=== PATIENT | female | born 1940 | race Caucasian/White ===

== ENCOUNTER 2017-07-17 10:39 | Observation (INO) | payer MEDICARE, OTHER ==
[~2017-07-17] VITALS: Ht 160 cm; Wt 64.0 kg
[2017-07-17] VITALS (7 sets, daily range): BP systolic 150–201; BP diastolic 60–93; PULSE 60–73; RESP 16–18; TEMP 97.4–98.2; O2SAT 97–100
[~2017-07-17 10:39] MED LIST: ATOR80TA41 PO; CARV6.252 OR; KCL20 PO; LISI-363 PO; MULT1TAB PO; NITR.4 SL; PRAS10TA OR; REST0.05 OU; ST JTAB PO
[2017-07-17 11:19] LABS: BILIRUBIN, URINE NEG (NEG); BLOOD, URINE SMALL (NEG); GLUCOSE,URINE NEG (NEG); KETONE, URINE NEG (NEG); NITRITE,URINE NEG (NEG); URINE LEUKOCYTE ESTERASE NEG (NEG)
[2017-07-17 11:38] LABS: SQUAMOUS EPITHELIAL CELL URINE 0-5 /hpf (0-5); URINE COLOR YELLOW (YELLW/STRAW); WBC, URINE 0-2 /hpf (0-5)
[2017-07-17] MEDS ORDERED: CARV6.252 PO (12:44)
[2017-07-17] MEDS ORDERED: PLAV75TA29 PO (12:44)
[2017-07-17] MEDS ORDERED: POTA10TA2 PO (12:44)
[2017-07-17] MEDS ORDERED: LIPI40TA PO (12:44)
[2017-07-17] MEDS ORDERED: CENTCHW4 CHEW (12:44)
[2017-07-17] MEDS ORDERED: LISI-515 PO (12:44)
[2017-07-17] MEDS ORDERED: REST0.05 EACH EYE (12:44)
[2017-07-17] MEDS ORDERED: NITR1SUB3 SL (12:44)
[2017-07-17] MEDS ORDERED: ASPI-516 CHEW (12:44)
[2017-07-17] MEDS ORDERED: SODIUM CHLORIDE 0.9% FLUSH 10 ML FLUSH IVF PRN (13:15)
[2017-07-17] MEDS ORDERED: PANTOPRAZOLE SODIUM 40 MG VIAL IV PUSH ONE (13:15)
--- NOTE | 2017-07-17 13:23 | PD ---
HPI Chief Complaint: Abdominal Pain Time Seen by Provider: 12:36 Travel History International Travel<30 days: No Contact w/Intl Traveler<30days: No Traveled to known affect area: No History of Present Illness HPI 76-year-old female with history of CAD, cardiac stents, renal cancer and colon cancer status post resection of the right kidney and part of the colon, here for evaluation of right upper abdominal pain and indigestion. The patient has had intermittent right upper quadrant pain for the last month. Since around 2: 00 AM the pain has been more constant, moderate, worse with movement and palpation. She also noted some indigestion and has been burping. Indigestion sensation has resolved, however it reminded her of the feeling that she experienced when she had a STEMI in 2013. No chest pain. No fevers or chills. She did become nauseous and had several episodes of pinkish emesis this morning. No diarrhea. PFSH Past Medical History Arthritis: Yes Cancer: Yes (COLON, KIDNEY) Cardiovascular Problems: Yes (AR, CARDIAC STENTS) High Cholesterol: Yes Chemotherapy: Yes (RESOLVED) Diminished Hearing: No Endocrine: No Gastrointestinal Disorders: No GERD: Yes Hiatal Hernia: Yes Hypertension: Yes Immune Disorder: No Medical other: Yes (MRSA) Musculoskeletal: Yes Neurologic: No Psychiatric: No Reproductive: No Respiratory: No Myocardial Infarction: Yes Radiation Therapy: No Tetanus Vaccination: > 5 Years Influenza Vaccination: Yes Past Surgical History Abdominal Surgery: Yes (hysterectomy, appendectomy) Appendectomy: Yes Cardiac Surgery: Yes (STENTS X 2) Ear Surgery: No Endocrine Surgery: No Eye Surgery: No Genitourinary Surgery: No Gynecologic Surgery: Yes (hysterectomy) Hysterectomy: Yes Oral Surgery: No Thoracic Surgery: No Other Surgery: Yes (2 colon cancers RESECTIONS, right kidney removed) Social History Alcohol Use: No Tobacco Use: No Substance Use: No Allergies-Medications (Allergen,Severity, Reaction): Coded Allergies: No Known Allergies (Unverified Adverse Reaction, Unknown, 07/17/17) Reported Meds & Prescriptions Reported Meds & Active Scripts Active Reported Nitroglycerin SL (Nitroglycerin) 0.4 Mg Subl 0.4 Mg SL DIRECTED PRN ONE TABLET UNDER THE TONGUE NEEDED FOR CHEST PAIN, MAY REPEAT EVERY FIVE MINUTES FOR A TOTAL OF 3 DOSES OR CALL 911 IF NO RELIEF Centrum (Multiple Vitamins W/ Minerals) 1 Chew 1 Tab CHEW DAILY Restasis Opth (Cyclosporine Opth) 0.05% Emul 1 Drop EACH EYE BID Lipitor (Atorvastatin Calcium) 40 Mg Tab 40 Mg PO HS Potassium Chloride ER (Potassium Chloride) 10 Meq Tab 10 Meq PO DAILY Aspirin 81 Mg Chew 81 Mg CHEW DAILY Lisinopril 20 Mg Tab 20 Mg PO DAILY Carvedilol 6.25 Mg Tab 6.25 Mg PO BID Plavix (Clopidogrel Bisulfate) 75 Mg Tab 75 Mg PO DAILY Review of Systems Except as stated in HPI: all other systems reviewed are Neg Physical Exam Narrative GENERAL: Well-developed, well-nourished, comfortable, no apparent distress. SKIN: Focused skin assessment warm/dry. HEAD: Atraumatic. Normocephalic. EYES: Pupils equal and round. No scleral icterus. No injection or drainage. ENT: No nasal bleeding or discharge. Mucous membranes pink and moist. NECK: Trachea midline. No JVD. CARDIOVASCULAR: Regular rate and rhythm. No murmur appreciated. RESPIRATORY: No accessory muscle use. Clear to auscultation. Breath sounds equal bilaterally. GASTROINTESTINAL: Abdomen soft, nondistended. Moderate right upper quadrant tenderness without peritoneal signs. Rest of abdomen is soft and nontender. Normal bowel sounds. MUSCULOSKELETAL: No obvious deformities. No clubbing. No cyanosis. No edema. NEUROLOGICAL: Awake and alert. No obvious cranial nerve deficits. Motor grossly within normal limits. Normal speech. PSYCHIATRIC: Appropriate mood and affect; insight and judgment normal. Data Data Last Documented VS Vital Signs Date Time Temp Pulse Resp B/P (MAP) Pulse Ox O2 Delivery O2 Flow Rate FiO2 07/17/17 16:08 62 16 172/73 (106) 100 Room Air 07/17/17 10:44 98.2 Orders Orders Electrocardiogram (07/17/17 ) Urinalysis - C+S If Indicated (07/17/17 11:02) Ckmb (Isoenzyme) Profile (07/17/17 13:02) Complete Blood Count With Diff (07/17/17 13:02) Comprehensive Metabolic Panel (07/17/17 13:02) Magnesium (Mg) (07/17/17 13:02) Prothrombin Time / Inr (Pt) (07/17/17 13:02) Act Partial Throm Time (Ptt) (07/17/17 13:02) Troponin I (07/17/17 13:02) Lipase (07/17/17 13:02) Chest, Single Ap (07/17/17 13:02) Ecg Monitoring (07/17/17 13:02) Iv Access Insert/Monitor (07/17/17 13:02) Oximetry (07/17/17 13:02) Sodium Chloride 0.9% Flush (Ns Flush) (07/17/17 13:15) Pantoprazole Inj (Protonix Inj) (07/17/17 13:15) Us Abdomen Gallbladder (07/17/17 ) Ct Thorax/ Chest W Iv Contrast (07/17/17 ) Ct Abd/Pel W Iv Contrast(Rout) (07/17/17 ) Iodixanol 320 Inj (Rad Ct) (Visipaque 32 (07/17/17 15:26) Ciprofloxacin 400 Mg Premix (Cipro 400 M (07/17/17 16:30) Metronidazole 500 Mg Inj (Flagyl 500 Mg (07/17/17 16:30) Labs Laboratory Tests Test 07/17/17 11:10 07/17/17 13:10 Urine Color YELLOW Urine Turbidity CLEAR Urine pH 5.0 Urine Specific [place] 1.025 Urine Protein NEG mg/dL Urine Glucose (UA) NEG mg/dL Urine Ketones NEG mg/dL Urine Occult Blood SMALL Urine Nitrite NEG Urine Bilirubin NEG Urine Leukocyte Esterase NEG Urine RBC 3-5 /hpf Urine WBC 0-2 /hpf Urine Squamous Epithelial Cells 0-5 /hpf Urine Bacteria NONE /hpf Microscopic Urinalysis Comment CULT NOT INDICATED White Blood Count 9.6 TH/MM3 Red Blood Count 4.03 MIL/MM3 Hemoglobin 12.4 GM/DL Hematocrit 36.0 % Mean Corpuscular Volume 89.3 FL Mean Corpuscular Hemoglobin 30.9 PG Mean Corpuscular Hemoglobin Concent 34.6 % Red Cell Distribution Width 12.3 % Platelet Count 246 TH/MM3 Mean Platelet Volume 8.5 FL Neutrophils (%) (Auto) 71.3 % Lymphocytes (%) (Auto) 25.3 % Monocytes (%) (Auto) 2.9 % Eosinophils (%) (Auto) 0.2 % Basophils (%) (Auto) 0.3 % Neutrophils # (Auto) 6.9 TH/MM3 Lymphocytes # (Auto) 2.4 TH/MM3 Monocytes # (Auto) 0.3 TH/MM3 Eosinophils # (Auto) 0.0 TH/MM3 Basophils # (Auto) 0.0 TH/MM3 CBC Comment DIFF FINAL Differential Comment Prothrombin Time 10.4 SEC Prothromb Time International Ratio 1.0 RATIO Activated Partial Thromboplast Time 24.3 SEC Blood Urea Nitrogen 26 MG/DL Creatinine 0.80 MG/DL Random Glucose 114 MG/DL Total Protein 7.6 GM/DL Albumin 3.8 GM/DL Calcium Level 9.3 MG/DL Magnesium Level 2.0 MG/DL Alkaline Phosphatase 60 U/L Aspartate Amino Transf (AST/SGOT) 21 U/L Alanine Aminotransferase (ALT/SGPT) 23 U/L Total Bilirubin 0.6 MG/DL Sodium Level 137 MEQ/L Potassium Level 4.6 MEQ/L Chloride Level 106 MEQ/L Carbon Dioxide Level 24.5 MEQ/L Anion Gap 7 MEQ/L Estimat Glomerular Filtration Rate 70 ML/MIN Total Creatine Kinase 99 U/L Troponin I LESS THAN 0.02 NG/ML Lipase 193 U/L MDM Medical Decision Making Medical Screen Exam Complete: Yes Emergency Medical Condition: Yes Medical Record Reviewed: Yes Interpretation(s) EKG: Sinus, rate 68, normal axis, normal intervals, no acute ischemic abnormality. Differential Diagnosis Gastritis, pancreatitis, hepatobiliary disease, peptic ulcer disease, colitis, AR/ACS Narrative Course Vital signs reviewed. CBC is unremarkable. CMP is unremarkable. Lipase is 193. Cardiac enzymes are negative. UA shows small occult blood, not suggestive of UTI. Chest x-ray: CONCLUSION: 1. 1 cm spiculated nodular density within the right lung base. CT of the thorax is needed to further evaluate. At this point a pulmonary mass cannot be excluded. 2. Cardiomegaly without pulmonary vascular engorgement. Right upper quadrant ultrasound: CONCLUSION: 1. Shadowing gallstones. 2. 3.6 cm right liver cyst. I discussed the case with the patient's band shover Dr. Matos regarding the patient's indigestion. States the patient can follow-up in his office for cardiac evaluation this week. Patient and the patient's significant other were made aware of all findings. She states her symptoms improved with Protonix. CTs will be performed to further evaluate the patient's lung nodule. She reports known history of liver cyst. CT thorax was performed to further evaluate the concerning nodule seen on the x- ray: CT thorax: CONCLUSION: Minimal medial right lung scarring or atelectasis. Otherwise negative CT thorax with contrast. CT abdomen pelvis: CONCLUSION: 1. Abnormal study demonstrating findings suspicious for acute cholecystitis including pericholecystic fluid, distention of the gallbladder, and multiple calcified gallstones. 2. No dilated intra-or extrahepatic biliary ducts. 3. Small bilateral fat containing inguinal hernias. The patient was made aware of all findings. She continues to have right upper quadrant abdominal pain and is extremely tender on exam. CT abdomen pelvis is consistent with acute cholecystitis. She'll be started on IV antibiotics and admitted to the medical service. According to a hospital memorandum published by our on-call general surgeons, they do not want to be contacted emergently for acute cholecystitis, therefore the patient will be admitted to the hospitalist service with a routine consult placed to them. Case discussed with hospitalist Dr. Gonzalez will admit the patient to her service. Diagnosis Primary Impression: Acute cholecystitis Admitting Information Admitting Physician Requests: Observation Dave Ruby MD Jul 17, 2017 13:23
[2017-07-17 13:25] LABS: AUTOMATED NEUTROPHIL # 6.9 TH/MM3 (1.8-7.7); BASOPHIL % 0.3 % (0.0-2.0); EOSINOPHIL % 0.2 % (0.0-4.0); HEMOGLOBIN 12.4 GM/DL (11.6-15.3); LYMPH % 25.3 % (9.0-44.0); LYMPHOCYTE # 2.4 TH/MM3 (1.0-4.8); MEAN CELL VOLUME 89.3 FL (80.0-100.0); MEAN CORPUSCULAR HEMOGLOBIN 30.9 PG (27.0-34.0); MEAN CORPUSCULAR HGB CONC 34.6 % (32.0-36.0); MEAN PLATELET VOLUME 8.5 FL (7.0-11.0); MONO % 2.9 % (0.0-8.0); MONOCYTE # 0.3 TH/MM3 (0-0.9); NEUT % 71.3 % (16.0-70.0); PLATELET COUNT 246 TH/MM3 (150-450); RED BLOOD COUNT 4.03 MIL/MM3 (4.00-5.30); RED CELL DISTRIBUTION WIDTH 12.3 % (11.6-17.2); WHITE BLOOD COUNT 9.6 TH/MM3 (4.0-11.0)
[2017-07-17 13:30] LABS: CHLORIDE 106 MEQ/L (98-107); SODIUM (NA) 137 MEQ/L (136-145)
[2017-07-17 13:33] LABS: CALCIUM 9.3 MG/DL (8.5-10.1)
[2017-07-17 13:34] LABS: ALBUMIN 3.8 GM/DL (3.4-5.0); BICARBONATE 24.5 MEQ/L (21.0-32.0); BLOOD UREA NITROGEN 26 MG/DL (7-18); GLUCOSE,RANDOM 114 MG/DL (74-106); PROTHROMBIN TIME - PATIENT 10.4 SEC (9.8-11.6)
[2017-07-17 13:37] LABS: ALT (GPT) 23 U/L (10-53); AST (GOT) 21 U/L (15-37); GLOMERULAR FILTRATION RATE 70 ML/MIN (>89)
[2017-07-17 13:38] LABS: TOTAL BILIRUBIN ADULT 0.6 MG/DL (0.2-1.0); TOTAL PROTEIN 7.6 GM/DL (6.4-8.2)
[2017-07-17 13:40] LABS: ALKALINE PHOSPHATASE 60 U/L (45-117)
[2017-07-17 13:42] LABS: TROPONIN I LESS THAN 0.02 NG/ML (0.02-0.05)
--- NOTE | 2017-07-17 14:10 | RADRPT ---
EXAM DATE/TIME: 07/17/2017 13:15 [facility] COMPARISON: CHEST SINGLE AP, April 05, 2014, 14:53. INDICATIONS : Chest pain for one day. MEDICAL HISTORY : Myocardial infarction. SURGICAL HISTORY : None. ENCOUNTER: Initial ACUITY: 1 day PAIN SCORE: 5/10 LOCATION: Bilateral chest FINDINGS: A single portable frontal view of the chest show small cardi megaly. No pulmonary vascular engorgemen t. A focal density at the right cardiophrenic angle is long-term stable and likely relates to an epic ardial fat pad. Lungs are clear. No infiltrates or effusions. Note is made of a spiculated like densi ty involving the right base measuring 1 cm in diameter. This is a new finding. A mildly degenerative spine. CONCLUSION: 1. 1 cm spiculated nodular density within the right lung base. CT of the thorax is needed to further evaluate. At this point a pulmonary mass cannot be excluded. 2. Cardiomegaly without pulmonary vascular engorgement. Carlos Mcmahon Jr., MD on July 17, 2017 at 14:04 Board Certified Radiologist. This report was verified electronically.
--- NOTE | 2017-07-17 14:51 | RADRPT ---
EXAM DATE/TIME: 07/17/2017 13:29 [facility] COMPARISON: No previous studies available for comparison. INDICATIONS : Right upper quadrant pain. MEDICAL HISTORY : Hypercholesterolemia. Myocardial infarction. Gastroesophageal reflux disease. Arthritis. Colon cancer . Renal cancer. Hypertension. SURGICAL HISTORY : Hysterectomy. Nephrectomy, right. Colon resection. Appendectomy. ENCOUNTER: Initial ACUITY: 1 day PAIN SCORE: 5/10 LOCATION: Right upper quadrant MEASUREMENTS: LIVER: 11.5 cm length COMMON DUCT: 3 mm FINDINGS: LIVER: Normal echotexture without focal lesion or ductal dilatation. Smooth margin simple cyst posterior ri ght lobe measuring 3.6 x 3.5 cm. COMMON DUCT: No intraluminal mass or stone visualized. GALLBLADDER: 1.8 cm echogenic shadowing focus within the fundus of the gallbladder characteristic of a shadowing s tone. Gallbladder wall is thickened to 3 mm. No pericholecystic fluid. PANCREAS: The visualized portions are within normal limits. RIGHT KIDNEY: Nephrectomy CONCLUSION: 1. Shadowing gallstones. 2. 3.6 cm right liver cyst. Carlos Esquivel MD on July 17, 2017 at 14:47 Board Certified Radiologist. This report was verified electronically.
[2017-07-17] MEDS ORDERED: IODIXANOL 320 MG/ML 10 ML VIAL (for Rad CT) IVCONTRAST ONE (15:26)
--- NOTE | 2017-07-17 15:38 | RADRPT ---
EXAM DATE/TIME: 07/17/2017 15:17 [facility] COMPARISON: No previous studies available for comparison. INDICATIONS : Right sided pain. IV CONTRAST: 50 cc Visipaque (iodixanol) IV ; Cumulative dose for multiple exams. RADIATION DOSE: 13.33 CTDIvol (mGy) ; Combined studies - Thorax/Abdomen/Pelvis MEDICAL HISTORY : Cardiovascular disease. Carcinoma, colon. Right renal cancer. SURGICAL HISTORY : Coronary artery stent. Nephrectomy, right.Appendectomy.Hysterectomy. ENCOUNTER: Initial ACUITY: 2 days PAIN SCALE: 5/10 LOCATION: Right chest TECHNIQUE: Volumetric scanning of the chest was performed. Using automated exposure control and adjustment of t he mA and/or kV according to patient size, radiation dose was kept as low as reasonably achievable to obtain optimal diagnostic quality images. DICOM format image data is available electronically for review and comparison. Follow-up recommendations for detected pulmonary nodules are based at a minimum on nodule size and pa tient risk factors according to Fleischner Society Guidelines. FINDINGS: LUNGS: There is no consolidation or pneumothorax. No concerning pulmonary nodule is visualized. Minimal sc arring or atelectasis in the medial right lower lung. PLEURA: There is no pleural thickening or pleural effusion. MEDIASTINUM: The heart and great vessels demonstrate no acute abnormality. There is no mediastinal or hilar lymph adenopathy. AXILLAE: Within normal limits. No lymphadenopathy. SKELETAL: Within normal limits for patient age. CONCLUSION: Minimal medial right lung scarring or atelectasis. Otherwise negative CT thorax with contrast. Carlos Esquivel MD on July 17, 2017 at 15:35 Board Certified Radiologist. This report was verified electronically.
--- NOTE | 2017-07-17 16:12 | RADRPT ---
EXAM DATE/TIME: 07/17/2017 15:17 [facility] COMPARISON: US ABDOMEN - GALLBLADDER, July 17, 2017, 13:29. INDICATIONS : Right sided pain. IV CONTRAST: 50 cc Visipaque (iodixanol) IV ; Cumulative dose for multiple exams. ORAL CONTRAST: No oral contrast ingested. RADIATION DOSE: 13.33 CTDIvol (mGy) ; Combined studies - Thorax/Abdomen/Pelvis MEDICAL HISTORY : Cardiovascular disease. Carcinoma, colon. Right renal cancer. SURGICAL HISTORY : Coronary artery stent. Appendectomy.Nephrectomy, right.Hysterectomy. ENCOUNTER: Initial ACUITY: 2 days PAIN SCALE: 5/10 LOCATION: Right pelvis abdomen TECHNIQUE: Volumetric scanning of the abdomen and pelvis was performed. Using automated exposure control and ad justment of the mA and/or kV according to patient size, radiation dose was kept as low as reasonably achievable to obtain optimal diagnostic quality images. DICOM format image data is available electro nically for review and comparison. FINDINGS: LOWER LUNGS: The visualized lower lungs are clear. LIVER: Homogeneous density without solid lesion. There is a smooth margined cyst in the posterior segment o f the right lobe measuring 4 cm. There is no dilation of the biliary tree. Abnormal appearance of t he gallbladder with mild distention, multiple calcified stones, and moderate amount of pericholecysti c fluid. The fluid does track into Morison's pouch. There is some induration of the fat inferior to the gallbladder and liver.. SPLEEN: Normal size without lesion. PANCREAS: Within normal limits. KIDNEYS: Normal in size and shape. There is no mass, stone or hydronephrosis. Multiple cystic areas in the r enal pelvis on the left side measuring up to 1.3 cm suggest multiple parapelvic cysts. ADRENAL GLANDS: Within normal limits. VASCULAR: There is no aortic aneurysm. BOWEL/MESENTERY: No dilated loops of small or large bowel. Anastomosis suture in the left lower quadrant. ABDOMINAL WALL: Within normal limits. RETROPERITONEUM: There is no lymphadenopathy. BLADDER: No wall thickening or mass. REPRODUCTIVE: Within normal limits. INGUINAL: Small bilateral fat containing inguinal hernias. MUSCULOSKELETAL: Within normal limits for patient age. CONCLUSION: 1. Abnormal study demonstrating findings suspicious for acute cholecystitis including pericholecystic fluid, distention of the gallbladder, and multiple calcified gallstones. 2. No dilated intra-or extrahepatic biliary ducts. 3. Small bilateral fat containing inguinal hernias. Carlos Esquivel MD on July 17, 2017 at 16:07 Board Certified Radiologist. This report was verified electronically.
[2017-07-17] MEDS ORDERED: CIPROFLOXACIN 400 MG PREMIX 200 ML IV ONE (16:30)
[2017-07-17] MEDS ORDERED: metroNIDAZOLE 500 MG INJ 100 ML IV ONE (16:30)
[2017-07-17] MEDS ORDERED: SODIUM CHLOR 0.9% 1000 ML INJ 1,000 ML IV SCH (16:40)
[2017-07-17] MEDS ORDERED: METOCLOPRAMIDE HCL 10 MG/2 ML VIAL IV PUSH PRN (16:45)
[2017-07-17] MEDS ORDERED: MORPHINE SULFATE 2 MG/ML INJ IV PUSH PRN (16:45)
[2017-07-17] MEDS ORDERED: SODIUM CHLORIDE 0.9% FLUSH 10 ML FLUSH IV FLUSH PRN (16:45)
[2017-07-17] MEDS ORDERED: ONDANSETRON HCL 4 MG/2 ML VIAL IVP PRN (16:45)
[2017-07-17] MEDS ORDERED: NALOXONE HCL 0.4 MG/ML AMP IV PUSH PRN (16:45)
[2017-07-17] MEDS ORDERED: NITROGLYCERIN 0.4 MG SL 25 TABS/BTL SL PRN (16:45)
[2017-07-17] MEDS ORDERED: SENNOSIDES 8.6 MG TAB PO PRN (16:45)
[2017-07-17] MEDS ORDERED: TEMAZEPAM 15 MG CAP PO PRN (16:45)
--- NOTE | 2017-07-17 17:10 | HHI.HP ---
[facility] Service [facility] Primary Care Physician Grisel Matos MD Admission Diagnosis acute cholecystitis Diagnoses: Chief Complaint: Abdominal pain Travel History International Travel<30 Days: No Contact w/Intl Traveler <30 Da: No Traveled to Known Affected Are: No History of Present Illness This patient is a 76-year-old female with a history of coronary artery disease she had an acute episode of abdominal discomfort that occurred early this morning. She thought she was having a heart attack. She has a history of coronary disease and has stents. She came to the emergency room for further evaluation when the symptoms did not subside. She did have cardiac enzymes which were negative as well as a EKG which is not on my review consistent with acute ischemic changes. She did have a CT abdomen pelvis and chest which was done and there are signs of acute cholecystitis present. Patient at this time is admitted to the hospital for evaluation and possible surgical treatment of this issue. This time the patient is comfortable without new complaints. Her pain is tolerable at this time and the patient has a normal intravenous antibiotics. Review of Systems Constitutional: DENIES: Diaphoretic episodes, Fatigue, Fever, Weight gain, Weight loss, Chills, Dizziness, Change in appetite, Night Sweats Endocrine: DENIES: Abnorml menstrual pattern, Heat/cold intolerance, Polydipsia , Polyuria, Polyphagia Eyes: DENIES: Blurred vision, Diplopia, Eye inflammation, Eye pain, Vision loss , Photosensitivity, Double Vision Ears, nose, mouth, throat: DENIES: Tinnitus, Hearing loss, Vertigo, Nasal discharge, Oral lesions, Throat pain, Hoarseness, Ear Pain, Running Nose, Epistaxis, Sinus Pain, Toothache, Odynophagia Respiratory: DENIES: Apneas, Cough, Snoring, Wheezing, Hemoptysis, Sputum production, Shortness of breath Cardiovascular: DENIES: Chest pain, Palpitations, Syncope, Dyspnea on Exertion , PND, Lower Extremity Edema, Orthopnea, Claudication Gastrointestinal: COMPLAINS OF: Abdominal pain, DENIES: Black stools, Bloody stools, Constipation, Diarrhea, Nausea, Vomiting, Difficulty Swallowing, Anorexia Genitourinary: DENIES: Abnormal vaginal bleeding, Dysmenorrhea, Dyspareunia, Sexual dysfunction, Urinary frequency, Urinary incontinence, Urgency, Hematuria , Dysuria, Nocturia, Vaginal discharge Musculoskeletal: DENIES: Joint pain, Muscle aches, Stiffness, Joint Swelling, Back pain, Neck pain Integumentary: DENIES: Abnormal pigmentation, Pruritus, Rash, Nail changes, Breast masses, Breast skin changes, Nipple discharge Hematologic/lymphatic: DENIES: Bruising, Lymphadenopathy Immunologic/allergic: DENIES: Eczema, Urticaria Neurologic: DENIES: Abnormal gait, Headache, Localized weakness, Paresthesias, Seizures, Speech Problems, Tremor, Poor Balance Psychiatric: DENIES: Anxiety, Confusion, Mood changes, Depression, Hallucinations, Agitation, Suicidal Ideation, Homicidal Ideation, Delusions Except as stated in HPI: all other systems reviewed are Neg Past Family Social History Past Medical History Coronary artery disease Hyperlipidemia Hypertension Past Surgical History Appendectomy Hysterectomy Hernia repair Right nephrectomy Colonic Resection 2 Reported Medications Reviewed in the EMR Allergies: Coded Allergies: No Known Allergies (Unverified Adverse Reaction, Unknown, 07/17/17) Active Ordered Medications Reviewed in the EMR Family History Mother and father from, case of acute cardiac disease Social History No tobacco or alcohol dependency, visiting from [facility] Physical Exam Vital Signs Vital Signs Date Time Temp Pulse Resp B/P (MAP) Pulse Ox O2 Delivery O2 Flow Rate FiO2 07/17/17 16:08 62 16 172/73 (106) 100 Room Air 07/17/17 14:49 67 18 163/66 (98) 98 Room Air 07/17/17 13:05 97 Room Air 07/17/17 12:59 68 16 201/93 (129) 98 07/17/17 10:44 98.2 73 16 193/81 (118) 98 Physical Exam GENERAL: This is a well-nourished, well-developed patient, in no apparent distress. SKIN: No rashes, ecchymoses or lesions. Cool and dry. HEAD: Atraumatic. Normocephalic. No temporal or scalp tenderness. EYES: Pupils equal round and reactive. Extraocular motions intact. No scleral icterus. No injection or drainage. ENT: Nose without bleeding, purulent drainage or septal hematoma. Throat without erythema, tonsillar hypertrophy or exudate. Uvula midline. Airway patent. NECK: Trachea midline. No JVD or lymphadenopathy. Supple, nontender, no meningeal signs. CARDIOVASCULAR: Regular rate and rhythm without murmurs, gallops, or rubs. RESPIRATORY: Clear to auscultation. Breath sounds equal bilaterally. No wheezes , rales, or rhonchi. GASTROINTESTINAL: Abdomen soft, right upper quadrant is tender, nondistended. No hepato-splenomegaly, or palpable masses. No guarding. MUSCULOSKELETAL: Extremities without clubbing, cyanosis, or edema. No joint tenderness, effusion, or edema noted. No calf tenderness. Negative Homans sign bilaterally. NEUROLOGICAL: Awake and alert. Cranial nerves II through XII intact. Motor and sensory grossly within normal limits. Five out of 5 muscle strength in all muscle groups. Normal speech. Laboratory Laboratory Tests Test 07/17/17 11:10 07/17/17 13:10 Urine Color YELLOW Urine Turbidity CLEAR Urine pH 5.0 Urine Specific [place] 1.025 Urine Protein NEG Urine Glucose (UA) NEG Urine Ketones NEG Urine Occult Blood SMALL Urine Nitrite NEG Urine Bilirubin NEG Urine Leukocyte Esterase NEG Urine RBC 3-5 Urine WBC 0-2 Urine Squamous Epithelial Cells 0-5 Urine Bacteria NONE Microscopic Urinalysis Comment CULT NOT INDICATED White Blood Count 9.6 Red Blood Count 4.03 Hemoglobin 12.4 Hematocrit 36.0 Mean Corpuscular Volume 89.3 Mean Corpuscular Hemoglobin 30.9 Mean Corpuscular Hemoglobin Concent 34.6 Red Cell Distribution Width 12.3 Platelet Count 246 Mean Platelet Volume 8.5 Neutrophils (%) (Auto) 71.3 Lymphocytes (%) (Auto) 25.3 Monocytes (%) (Auto) 2.9 Eosinophils (%) (Auto) 0.2 Basophils (%) (Auto) 0.3 Neutrophils # (Auto) 6.9 Lymphocytes # (Auto) 2.4 Monocytes # (Auto) 0.3 Eosinophils # (Auto) 0.0 Basophils # (Auto) 0.0 CBC Comment DIFF FINAL Differential Comment Prothrombin Time 10.4 Prothromb Time International Ratio 1.0 Activated Partial Thromboplast Time 24.3 Blood Urea Nitrogen 26 Creatinine 0.80 Random Glucose 114 Total Protein 7.6 Albumin 3.8 Calcium Level 9.3 Magnesium Level 2.0 Alkaline Phosphatase 60 Aspartate Amino Transf (AST/SGOT) 21 Alanine Aminotransferase (ALT/SGPT) 23 Total Bilirubin 0.6 Sodium Level 137 Potassium Level 4.6 Chloride Level 106 Carbon Dioxide Level 24.5 Anion Gap 7 Estimat Glomerular Filtration Rate 70 Total Creatine Kinase 99 Troponin I LESS THAN 0.02 Lipase 193 Result Diagram: 07/17/17 1310 07/17/17 1310 Imaging Last Impressions Chest X-Ray 07/17/17 1302 Signed Impressions: Service Date/Time: Monday, July 17, 2017 13:15 - CONCLUSION: 1. 1 cm spiculated nodular density within the right lung base. CT of the thorax is needed to further evaluate. At this point a pulmonary mass cannot be excluded. 2. Cardiomegaly without pulmonary vascular engorgement. Carlos Mcmahon Jr., MD Gall Bladder Ultrasound 07/17/17 0000 Signed Impressions: Service Date/Time: Monday, July 17, 2017 13:29 - CONCLUSION: 1. Shadowing gallstones. 2. 3.6 cm right liver cyst. Carlos Esquivel MD Chest CT 07/17/17 0000 Signed Impressions: Service Date/Time: Monday, July 17, 2017 15:17 - CONCLUSION: Minimal medial right lung scarring or atelectasis. Otherwise negative CT thorax with contrast. Carlos Esquivel MD Abdomen/Pelvis CT 07/17/17 0000 Signed Impressions: Service Date/Time: Monday, July 17, 2017 15:17 - CONCLUSION: 1. Abnormal study demonstrating findings suspicious for acute cholecystitis including pericholecystic fluid, distention of the gallbladder, and multiple calcified gallstones. 2. No dilated intra-or extrahepatic biliary ducts. 3. Small bilateral fat containing inguinal hernias. MD Fransisco Mays VTE Risk Assessment Caprini VTE Risk Assessment: No/Low Risk (score <= 1) Caprini Risk Assessment Model Point Value = 1 Point Value = 2 Point Value = 3 Point Value = 5 Age 41-60 Minor surgery BMI > 25 kg/m2 Swollen legs Varicose veins or History of unexplained or recurrent spontaneous Oral contraceptives or hormone replacement Sepsis (< 1 month) Serious lung disease, including pneumonia (< 1 month) Abnormal pulmonary function Acute myocardial infarction Congestive heart failure (< 1 month) History of inflammatory bowel disease Medical patient at bed rest Age 61-74 Arthroscopic surgery Major open surgery (> 45 min) Laparoscopic surgery (> 45 min) Malignancy Confined to bed (> 72 hours) Immobilizing plaster cast Central venous access Age >= 75 History of VTE Family history of VTE Factor V Leiden Prothrombin [id number] Lupus anticoagulant Anticardiolipin antibodies Elevated serum homocysteine Heparin-induced thrombocytopenia Other congenital or acquired thrombophilia Stroke (< 1 month) Elective arthroplasty Hip, pelvis, or leg fracture Acute spinal cord injury (< 1 month) Prophylaxis Regimen Total Risk Factor Score Risk Level Prophylaxis Regimen 0-1 Low Early ambulation 2 Moderate Order ONE of the following: *Sequential Compression Device (SCD) *Heparin 5000 units SQ BID 3-4 Higher Order ONE of the following medications: *Heparin 5000 units SQ TID *Enoxaparin/Lovenox 40 mg SQ daily (WT < 150 kg, CrCl > 30 mL/min) *Enoxaparin/Lovenox 30 mg SQ daily (WT < 150 kg, CrCl > 10-29 mL/min) *Enoxaparin/Lovenox 30 mg SQ BID (WT < 150 kg, CrCl > 30 mL/min) AND/OR *Sequential Compression Device (SCD) 5 or more Highest Order ONE of the following medications: *Heparin 5000 units SQ TID (Preferred with Epidurals) *Enoxaparin/Lovenox 40 mg SQ daily (WT < 150 kg, CrCl > 30 mL/min) *Enoxaparin/Lovenox 30 mg SQ daily (WT < 150 kg, CrCl > 10-29 mL/min) *Enoxaparin/Lovenox 30 mg SQ BID (WT < 150 kg, CrCl > 30 mL/min) AND *Sequential Compression Device (SCD) Assessment and Plan Problem List: (1) Acute cholecystitis ICD Code: K81.0 - Acute cholecystitis Status: Acute Plan: Continue IV narcotics/morphine for pain IV fluids Empiric Zosyn Clear liquids general surgery consult appreciated (2) CAD (coronary artery disease) ICD Code: I25.10 - Atherosclerotic heart disease of [place] coronary artery without angina pectoris Plan: We'll hold current Plavix and aspirin Cardiology aware Follow-up EKG as needed, telemetry Code Status Full code Discussed Condition With Discussed with patient, ANNABEL Marquez, general surgery team and cardiology Physician Certification 2 Midnight Certification Type: Admission for Inpatient Services Order for Inpatient Services The services are ordered in accordance with Medicare regulations or non- Medicare payer requirements, as applicable. In the case of services not specified as inpatient-only, they are appropriately provided as inpatient services in accordance with the 2-midnight benchmark. Estimated LOS (days): 3 3 days is the estimated time the patient will need to remain in the hospital, assuming treatment plan goals are met and no additional complications. Post-Hospital Plan: Yumiko Puckett MD Jul 17, 2017 17:10
--- NOTE | 2017-07-17 17:18 | PD.CONS ---
cc: Ady Collazo MD [facility] Service General Surgery Consult Requested By Dr. Gonzalez Reason for Consult Acute cholecystitis Primary Care Physician Grisel Matos MD History of Present Illness This is a 76 year old female with a past medical history of renal and colon cancers, cardiac stent placement, myocardial infarction, hypertension, and dyslipidemia. She does take Plavix and aspirin and last took them this morning. The patient was in her usual state of healthy until she suddenly awoke this morning with acute onset of abdominal pain with associated nausea and vomiting. The patient came to the Emergency Room for evaluation when the pain peristriated. A CT abdomen and pelvis was obtained which is suspicious for acute cholecystitis with pericholecystic fluid and distention of the gallbladder. Her laboratory work is essentially normal. A General Surgery consultation has been requested. Review of Systems Constitutional: DENIES: Change in appetite Endocrine: DENIES: Polydipsia, Polyuria, Polyphagia Eyes: DENIES: Diplopia, Eye inflammation Ears, nose, mouth, throat: DENIES: Hearing loss, Vertigo Respiratory: DENIES: Apneas, Cough Cardiovascular: DENIES: Chest pain Gastrointestinal: COMPLAINS OF: Abdominal pain, Nausea, Vomiting Genitourinary: DENIES: Urinary frequency Musculoskeletal: DENIES: Joint pain Integumentary: DENIES: Abnormal pigmentation Hematologic/lymphatic: DENIES: Bruising Immunologic/allergic: DENIES: Eczema Neurologic: DENIES: Abnormal gait, Headache Psychiatric: DENIES: Confusion, Mood changes, Depression Past Family Social History Past Medical History Kidney cancer Colon cancer Myocardial infarction Dyslipidemia Hypertension Past Surgical History Robotic RIGHT nephrectomy Colon resection Hysterectomy Appendectomy Reported Medications Plavix Aspirin Nitro Carvedilol Lisinopril Potassium replacement Restasis Centrum multivitamin Allergies: Coded Allergies: No Known Allergies (Unverified Allergy, Unknown, 07/17/17) Active Ordered Medications Current Medications Medications (Trade) Dose Ordered Sig/Lety Route Start Time Stop Time Status Last Admin Ciprofloxacin/ Dextrose 200 ml @ 200 mls/hr ONCE ONCE IV 07/17/17 16:30 07/17/17 17:29 07/17/17 16:44 Metronidazole 100 ml @ 100 mls/hr ONCE ONCE IV 07/17/17 16:30 07/17/17 17:29 Sodium Chloride 1,000 ml @ 100 mls/hr Q10H IV 07/17/17 16:37 (NS Flush) 2 ml UNSCH PRN IV FLUSH 07/17/17 16:45 (NS Flush) 2 ml BID IV FLUSH 07/17/17 21:00 (Zofran Inj) 4 mg Q6H PRN IVP 07/17/17 16:45 (Reglan Inj) 5 mg Q6H PRN IV PUSH 07/17/17 16:45 (Restoril) 15 mg HS PRN PO 07/17/17 16:45 (Narcan Inj) 0.4 mg UNSCH PRN IV PUSH 07/17/17 16:45 (Senokot) 17.2 mg Q12H PRN PO 07/17/17 16:45 Piperacillin Sod/ Tazobactam Sod 100 ml @ 200 mls/hr Q8H IV 07/17/17 16:45 UNV (Coreg) 6.25 mg BID PO 07/17/17 21:00 (Prinivil) 20 mg DAILY PO 07/18/17 09:00 (Nitrostat Sl) 0.4 mg STAT PRN SL 07/17/17 16:45 Non-Formulary Medication 1 drop BID EACH EYE 07/17/17 21:00 UNV (Morphine Inj) 2 mg Q4H PRN IV PUSH 07/17/17 16:45 UNV Family History Both parents of heart problems Social History Denies tobacco use Denies ETOH use Denies illicit drug use Lives 6 months in [place] and 6 months in [place]. Physical Exam Vital Signs Vital Signs Date Time Temp Pulse Resp B/P (MAP) Pulse Ox O2 Delivery O2 Flow Rate FiO2 07/17/17 16:08 62 16 172/73 (106) 100 Room Air 07/17/17 14:49 67 18 163/66 (98) 98 Room Air 07/17/17 13:05 97 Room Air 07/17/17 12:59 68 16 201/93 (129) 98 07/17/17 10:44 98.2 73 16 193/81 (118) 98 Physical Exam GENERAL: Very pleasant 76 year old female resting in bed in no acute distress. SKIN: Warm and dry. HEAD: Atraumatic. Normocephalic. EYES: Pupils equal and round. No scleral icterus. No injection or drainage. ENT: No nasal bleeding or discharge. Mucous membranes pink and moist. NECK: Trachea midline. CARDIOVASCULAR: Regular rate and rhythm. RESPIRATORY: No accessory muscle use. Clear to auscultation. Breath sounds equal bilaterally. GASTROINTESTINAL: Abdomen soft, nondistended. Mild RUQ tenderness with light palpation; moderate RUQ tenderness with deep palpation. Well healed midline incision; RLQ and low transverse incisions. MUSCULOSKELETAL: Extremities without clubbing, cyanosis, or edema. No obvious deformities. NEUROLOGICAL: Awake and alert. No obvious cranial nerve deficits. Motor grossly within normal limits. Five out of 5 muscle strength in the arms and legs. Normal speech. PSYCHIATRIC: Appropriate mood and affect; insight and judgment normal. Laboratory Laboratory Tests Test 07/17/17 11:10 07/17/17 13:10 Urine Color YELLOW Urine Turbidity CLEAR Urine pH 5.0 Urine Specific [place] 1.025 Urine Protein NEG Urine Glucose (UA) NEG Urine Ketones NEG Urine Occult Blood SMALL Urine Nitrite NEG Urine Bilirubin NEG Urine Leukocyte Esterase NEG Urine RBC 3-5 Urine WBC 0-2 Urine Squamous Epithelial Cells 0-5 Urine Bacteria NONE Microscopic Urinalysis Comment CULT NOT INDICATED White Blood Count 9.6 Red Blood Count 4.03 Hemoglobin 12.4 Hematocrit 36.0 Mean Corpuscular Volume 89.3 Mean Corpuscular Hemoglobin 30.9 Mean Corpuscular Hemoglobin Concent 34.6 Red Cell Distribution Width 12.3 Platelet Count 246 Mean Platelet Volume 8.5 Neutrophils (%) (Auto) 71.3 Lymphocytes (%) (Auto) 25.3 Monocytes (%) (Auto) 2.9 Eosinophils (%) (Auto) 0.2 Basophils (%) (Auto) 0.3 Neutrophils # (Auto) 6.9 Lymphocytes # (Auto) 2.4 Monocytes # (Auto) 0.3 Eosinophils # (Auto) 0.0 Basophils # (Auto) 0.0 CBC Comment DIFF FINAL Differential Comment Prothrombin Time 10.4 Prothromb Time International Ratio 1.0 Activated Partial Thromboplast Time 24.3 Blood Urea Nitrogen 26 Creatinine 0.80 Random Glucose 114 Total Protein 7.6 Albumin 3.8 Calcium Level 9.3 Magnesium Level 2.0 Alkaline Phosphatase 60 Aspartate Amino Transf (AST/SGOT) 21 Alanine Aminotransferase (ALT/SGPT) 23 Total Bilirubin 0.6 Sodium Level 137 Potassium Level 4.6 Chloride Level 106 Carbon Dioxide Level 24.5 Anion Gap 7 Estimat Glomerular Filtration Rate 70 Total Creatine Kinase 99 Troponin I LESS THAN 0.02 Lipase 193 Result Diagram: 07/17/17 1310 07/17/17 1310 Imaging Last 48 hours Impressions Chest X-Ray 07/17/17 1302 Signed Impressions: Service Date/Time: Monday, July 17, 2017 13:15 - CONCLUSION: 1. 1 cm spiculated nodular density within the right lung base. CT of the thorax is needed to further evaluate. At this point a pulmonary mass cannot be excluded. 2. Cardiomegaly without pulmonary vascular engorgement. Carlos Mcmahon Jr., MD Gall Bladder Ultrasound 07/17/17 0000 Signed Impressions: Service Date/Time: Monday, July 17, 2017 13:29 - CONCLUSION: 1. Shadowing gallstones. 2. 3.6 cm right liver cyst. Carlos Esquivel MD Chest CT 07/17/17 0000 Signed Impressions: Service Date/Time: Monday, July 17, 2017 15:17 - CONCLUSION: Minimal medial right lung scarring or atelectasis. Otherwise negative CT thorax with contrast. Carlos Esquivel MD Abdomen/Pelvis CT 07/17/17 0000 Signed Impressions: Service Date/Time: Monday, July 17, 2017 15:17 - CONCLUSION: 1. Abnormal study demonstrating findings suspicious for acute cholecystitis including pericholecystic fluid, distention of the gallbladder, and multiple calcified gallstones. 2. No dilated intra-or extrahepatic biliary ducts. 3. Small bilateral fat containing inguinal hernias. Carlos Esquivel MD Assessment and Plan Assessment and Plan 76 year old female with a history of cardiac stents on Plavix and aspirin; RUQ tenderness; acute cholecystitis -Clear liquids -Cardiology consult for surgery clearance---Known to Dr. Matos -Hold Plavix/Aspirin -Zosyn -IVF -Discussed two options---- cholecystostomy tube vs traditional laparoscopic vs open cholecystectomy -Will await Cardiology clearance -Thank you for this consult; We will continue to follow Discussed Condition With Dr. Vale Yanez. and Cathryn MotaP/[employer] Jul 17, 2017 17:17
[2017-07-17] MEDS: SODIUM CHLOR 0.9% 1000 ML INJ 1,000 ML IV SCH (17:47)
[2017-07-17] MEDS: PIPERACIL-TAZO 4.5 GM PREMIX 100 ML IV SCH (20:33)
[2017-07-17] MEDS: CARVEDILOL 6.25 MG TAB PO SCH (20:34)
[2017-07-17] MEDS: SODIUM CHLORIDE 0.9% FLUSH 10 ML FLUSH IV FLUSH SCH (20:34)
[2017-07-17] MEDS: CYCLOSPORINE OPTH EACH EYE SCH (20:42)
--- NOTE | 2017-07-17 22:46 | EKG ---
Date Performed: 07/17/2017 Time Performed: 10:56:37 PTAGE: 76 years EKG: Sinus rhythm NORMAL ECG PREVIOUS TRACING : 04/05/2014 13.47 DOCTOR: Devante Valdes Interpretating Date/Time 07/17/2017 22:44:44
[2017-07-18] VITALS: BP 143/70; PULSE 69; RESP 19; TEMP 98.1; O2SAT 97
[2017-07-18 04:00] VITALS: BP 155/67; PULSE 59; RESP 17; TEMP 98.1; O2SAT 99
[2017-07-18] MEDS: PIPERACIL-TAZO 4.5 GM PREMIX 100 ML IV SCH (04:03)
[2017-07-18] MEDS: SODIUM CHLOR 0.9% 1000 ML INJ 1,000 ML IV SCH (04:04)
[2017-07-18 06:43] LABS: AUTOMATED NEUTROPHIL # 4.6 TH/MM3 (1.8-7.7); BASOPHIL % 0.4 % (0.0-2.0); EOSINOPHIL # 0.1 TH/MM3 (0-0.4); EOSINOPHIL % 1.2 % (0.0-4.0); HEMATOCRIT 33.8 % (35.0-46.0); HEMOGLOBIN 10.9 GM/DL (11.6-15.3); LYMPHOCYTE # 2.2 TH/MM3 (1.0-4.8); MEAN CELL VOLUME 89.7 FL (80.0-100.0); MEAN CORPUSCULAR HGB CONC 32.3 % (32.0-36.0); MEAN PLATELET VOLUME 9.1 FL (7.0-11.0); MONO % 6.3 % (0.0-8.0); MONOCYTE # 0.5 TH/MM3 (0-0.9); NEUT % 63.1 % (16.0-70.0); PLATELET COUNT 209 TH/MM3 (150-450); RED BLOOD COUNT 3.77 MIL/MM3 (4.00-5.30); WHITE BLOOD COUNT 7.4 TH/MM3 (4.0-11.0)
[2017-07-18 07:03] LABS: BICARBONATE 25.7 MEQ/L (21.0-32.0); CALCIUM 8.4 MG/DL (8.5-10.1); CREATININE 0.89 MG/DL (0.50-1.00)
[2017-07-18 08:00] VITALS: BP 150/65; PULSE 54; RESP 18; TEMP 96.6; O2SAT 100
[2017-07-18] MEDS: CYCLOSPORINE OPTH EACH EYE SCH (09:00)
[2017-07-18] MEDS: SODIUM CHLORIDE 0.9% FLUSH 10 ML FLUSH IV FLUSH SCH (09:00)
[2017-07-18] MEDS ORDERED: LISINOPRIL 20 MG TAB PO SCH (09:00)
[2017-07-18] MEDS: CARVEDILOL 6.25 MG TAB PO SCH (09:48)
[2017-07-18] MEDS ORDERED: PANTOPRAZOLE SOD 40 MG DELAYED RELEASE TAB PO SCH (11:00)
--- NOTE | 2017-07-18 11:15 | HHI.PR ---
Subjective Subjective Notes 76yo female with acute cholecystitis, on Plavix for CAD/stent, stable. agree with ABX, clear diet if cleared by Cardiology to be off Plavix, will plan surgery for as inpatient. if patient is discharged she can fu with me on Monday for planned outpatient surgery. d/w patient and the r/b/a to cholecystectomy will follow Objective Vitals/I&O Vital Signs Date Time Temp Pulse Resp B/P (MAP) Pulse Ox O2 Delivery O2 Flow Rate FiO2 07/18/17 08:00 96.6 54 18 150/65 (93) 100 07/17/17 17:57 21 07/17/17 16:08 Room Air Labs Laboratory Tests Test 07/17/17 11:10 07/17/17 13:10 07/17/17 17:20 07/18/17 05:20 Urine Color YELLOW Urine Turbidity CLEAR Urine pH 5.0 Urine Specific [place] 1.025 Urine Protein NEG Urine Glucose (UA) NEG Urine Ketones NEG Urine Occult Blood SMALL Urine Nitrite NEG Urine Bilirubin NEG Urine Leukocyte Esterase NEG Urine RBC 3-5 Urine WBC 0-2 Urine Squamous Epithelial Cells 0-5 Urine Bacteria NONE Microscopic Urinalysis Comment CULT NOT INDICATED White Blood Count 9.6 7.4 Red Blood Count 4.03 3.77 Hemoglobin 12.4 10.9 Hematocrit 36.0 33.8 Mean Corpuscular Volume 89.3 89.7 Mean Corpuscular Hemoglobin 30.9 29.0 Mean Corpuscular Hemoglobin Concent 34.6 32.3 Red Cell Distribution Width 12.3 12.0 Platelet Count 246 209 Mean Platelet Volume 8.5 9.1 Neutrophils (%) (Auto) 71.3 63.1 Lymphocytes (%) (Auto) 25.3 29.0 Monocytes (%) (Auto) 2.9 6.3 Eosinophils (%) (Auto) 0.2 1.2 Basophils (%) (Auto) 0.3 0.4 Neutrophils # (Auto) 6.9 4.6 Lymphocytes # (Auto) 2.4 2.2 Monocytes # (Auto) 0.3 0.5 Eosinophils # (Auto) 0.0 0.1 Basophils # (Auto) 0.0 0.0 CBC Comment DIFF FINAL DIFF FINAL Differential Comment Prothrombin Time 10.4 Prothromb Time International Ratio 1.0 Activated Partial Thromboplast Time 24.3 Blood Urea Nitrogen 26 16 Creatinine 0.80 0.89 Random Glucose 114 92 Total Protein 7.6 Albumin 3.8 Calcium Level 9.3 8.4 Magnesium Level 2.0 Alkaline Phosphatase 60 Aspartate Amino Transf (AST/SGOT) 21 Alanine Aminotransferase (ALT/SGPT) 23 Total Bilirubin 0.6 Sodium Level 137 142 Potassium Level 4.6 3.4 Chloride Level 106 111 Carbon Dioxide Level 24.5 25.7 Anion Gap 7 5 Estimat Glomerular Filtration Rate 70 62 Total Creatine Kinase 99 Troponin I LESS THAN 0.02 LESS THAN 0.02 Lipase 193 Radiology Last 48 hours Impressions Chest X-Ray 07/17/17 1302 Signed Impressions: Service Date/Time: Monday, July 17, 2017 13:15 - CONCLUSION: 1. 1 cm spiculated nodular density within the right lung base. CT of the thorax is needed to further evaluate. At this point a pulmonary mass cannot be excluded. 2. Cardiomegaly without pulmonary vascular engorgement. Carlos Mcmahon Jr., MD Gall Bladder Ultrasound 07/17/17 0000 Signed Impressions: Service Date/Time: Monday, July 17, 2017 13:29 - CONCLUSION: 1. Shadowing gallstones. 2. 3.6 cm right liver cyst. Carlos Esquivel MD Chest CT 07/17/17 0000 Signed Impressions: Service Date/Time: Monday, July 17, 2017 15:17 - CONCLUSION: Minimal medial right lung scarring or atelectasis. Otherwise negative CT thorax with contrast. Carlos Esquivel MD Abdomen/Pelvis CT 07/17/17 0000 Signed Impressions: Service Date/Time: Monday, July 17, 2017 15:17 - CONCLUSION: 1. Abnormal study demonstrating findings suspicious for acute cholecystitis including pericholecystic fluid, distention of the gallbladder, and multiple calcified gallstones. 2. No dilated intra-or extrahepatic biliary ducts. 3. Small bilateral fat containing inguinal hernias. MD Vale Mays Andrew W. MD Jul 18, 2017 11:15
[2017-07-18 12:00] VITALS: BP 159/68; PULSE 63; RESP 16; TEMP 97; O2SAT 98
--- NOTE | 2017-07-18 12:36 | HHI.DCPOC ---
Discharge Care Plan Diagnosis: (1) CAD (coronary artery disease) (2) Acute cholecystitis Goals to Promote Your Health * To prevent worsening of your condition and complications * To maintain your health at the optimal level Directions to Meet Your Goals Take your medications as prescribed Follow your dietary instruction Follow activity as directed Keep your appointments as scheduled Take your immunizations and boosters as scheduled If your symptoms worsen call your PCP, if no PCP go to Urgent Care Center or Emergency Room Smoking is Dangerous to Your Health. Avoid second hand smoke Call the 24-hour hour crisis hotline for domestic abuse at Yumiko Gonzalez MD Jul 18, 2017 12:36
[2017-07-18] MEDS ORDERED: ZOFR4TAB PO (12:37)
[2017-07-18] MEDS ORDERED: NORC5TAB PO (12:37)
[2017-07-18] MEDS ORDERED: AUGM500T7 PO (12:39)
--- NOTE | 2017-07-18 12:39 | HHI.PR ---
Subjective Remarks patient seen and evaluated today in follow-up for acute cholecystitis. Appears improved with IV hydration patient's tolerating her low-fat diet without difficulty. Discharge plans discussed with patient for further outpatient surgical treatment. She hasn't are agreeable Objective Vitals Vital Signs Date Time Temp Pulse Resp B/P (MAP) Pulse Ox O2 Delivery O2 Flow Rate FiO2 07/18/17 08:00 96.6 54 18 150/65 (93) 100 07/18/17 04:00 98.1 59 17 155/67 (96) 99 07/18/17 00:00 98.1 69 19 143/70 (94) 97 07/17/17 21:32 98 07/17/17 20:00 60 07/17/17 20:00 97.4 62 17 150/60 (90) 99 07/17/17 17:57 21 07/17/17 17:27 07/17/17 16:08 62 16 172/73 (106) 100 Room Air 07/17/17 14:49 67 18 163/66 (98) 98 Room Air 07/17/17 13:05 97 Room Air 07/17/17 12:59 68 16 201/93 (129) 98 I/O 07/17/17 07/17/17 07/17/17 07/18/17 07/18/17 07/18/17 07:00 15:00 23:00 07:00 15:00 23:00 Intake Total 400 ml 829 ml Balance 400 ml 829 ml Intake IV Total 400 ml 829 ml # Voids 3 Result Diagram: 07/18/1720 07/18/17 0520 Objective Remarks GENERAL: This is a well-nourished, well-developed patient, in no apparent distress. CARDIOVASCULAR: Regular rate and rhythm without murmurs, gallops, or rubs. RESPIRATORY: Clear to auscultation. Breath sounds equal bilaterally. No wheezes , rales, or rhonchi. GASTROINTESTINAL: Abdomen soft, non-tender, nondistended. Normal active bowel sounds MUSCULOSKELETAL: Extremities without clubbing, cyanosis, or edema. NEURO: Alert & Oriented x4 to person, place, time, situation. Moves all ext x4 A/P Problem List: (1) Acute cholecystitis ICD Code: K81.0 - Acute cholecystitis Status: Acute Plan: Patient doing well and not requiring any IV narcotics for pain. She is tolerating her diet. Discharge plan discussed with patient, cardiology team and with general surgery. Patient appears low risk at this time per previous cardiac catheterization 2014 as well as stress test in 2016. Patient will follow-up in the cardiology office in the morning and with general surgery for Monday to plan outpatient surgery. (2) CAD (coronary artery disease) ICD Code: I25.10 - Atherosclerotic heart disease of [place] coronary artery without angina pectoris Plan: We'll hold current Plavix and aspirin Follow-up with cardiology a.m. Discharge Planning Discharge home Activity unrestricted Diet low-fat Yumiko Gonzalez MD Jul 18, 2017 12:39
[2017-07-25] MEDS ORDERED: PLAV75TA29 PO (13:49)
== END 2017-07-18 13:56 | disposition home or self-care (01) ==
LOC: PHED 10:39 → PHEDA 16:31 → INTOOBSV 16:40 → OBSVTOIN 16:40 → PH3B 17:35
PROVIDERS: ADMIT Hospitalist; ATTEND Hospitalist
DX: K80.00 Calculus of gallbladder with acute cholecystitis without obstruction (principal); I25.10 Atherosclerotic heart disease of native coronary artery without angina pectoris; Z95.5 Presence of coronary angioplasty implant and graft; Z85.528 Personal history of other malignant neoplasm of kidney; Z85.038 Personal history of other malignant neoplasm of large intestine; K30 Functional dyspepsia; I25.2 Old myocardial infarction; M19.90 Unspecified osteoarthritis, unspecified site; K21.9 Gastro-esophageal reflux disease without esophagitis; K44.9 Diaphragmatic hernia without obstruction or gangrene; I11.9 Hypertensive heart disease without heart failure; Z90.710 Acquired absence of both cervix and uterus; Z79.01 Long term (current) use of anticoagulants; Z79.899 Other long term (current) drug therapy; K76.89 Other specified diseases of liver; K40.20 Bilateral inguinal hernia, without obstruction or gangrene, not specified as recurrent; E78.5 Hyperlipidemia, unspecified; J98.4 Other disorders of lung
CPT/HCPCS: 71045; 71260; 74177; 76705; 80048; 80053; 81001; 82550; 83690; 83735; 84484; 85025; 85610; 85730; 93005; 96365; 96366; 96375; 99285; C9113; G0378; J0744; J2543; J7030; Q9967

== ENCOUNTER 2017-07-26 11:18 | Observation (INO) | payer MEDICARE, OTHER ==
[~2017-07-26] VITALS: Ht 160 cm; Wt 62.4 kg
[~2017-07-26 11:18] MED LIST changes: -ATOR80TA41 PO; -CARV6.252 OR; +CARV6.252 PO; +CENTCHW4 CHEW; -KCL20 PO; +LIPI40TA PO; -LISI-363 PO; +LISI-515 PO; -MULT1TAB PO; -NITR.4 SL; +NITR1SUB3 SL; +NORC5TAB PO; +PLAV75TA29 PO; +POTA10TA2 PO; -PRAS10TA OR; +REST0.05 EACH EYE; -REST0.05 OU; -ST JTAB PO; +ZOFR4TAB PO
[2017-07-26] MEDS ORDERED: ceFAZolin 2 GM PREMIX 50 ML ONE (11:55)
[2017-07-26] MEDS ORDERED: LACTATED RINGER'S 1000 ML IV PRN (12:00)
[2017-07-26] MEDS ORDERED: ePHEDrine/NS 25 MG/5 ML SYRINGE IV ONE (12:00)
[2017-07-26] MEDS ORDERED: LACTATED RINGER'S 1000 ML INJ 1,000 ML IV ONE (12:00)
[2017-07-26] MEDS ORDERED: NEOSTIGMINE 5 MG/5 ML SYRINGE IV PUSH ONE (12:00)
[2017-07-26] MEDS ORDERED: ROCURONIUM INJ 50 MG/5 ML SYRINGE IV PUSH ONE (12:00)
[2017-07-26] MEDS ORDERED: LABETALOL HCL 100 MG/20 ML VIAL IV ONE (12:00)
[2017-07-26] MEDS ORDERED: POVIDONE IODINE 5% (ANTISEPSIS KIT) 4 APPLICATIONS EACH NARE PRN (12:00)
[2017-07-26] MEDS ORDERED: SODIUM CHLORID 0.9% 500 ML IV PRN (12:00)
[2017-07-26] MEDS ORDERED: GLYCOPYRROLATE 1 MG/5 ML SYRINGE IV PUSH ONE (12:00)
[2017-07-26] MEDS ORDERED: CHLORHEXIDINE GLUCONATE 2 % 1 PACK (2 CLOTHS) TOPICAL PRN (12:00)
[2017-07-26] MEDS ORDERED: METOPROLOL TARTRATE 25 MG TAB PO PRN (12:00)
[2017-07-26] MEDS ORDERED: BUPIVACAINE/EPINEPHRINE 0.25% 50 ML VIAL ONE (12:15)
[2017-07-26] MEDS ORDERED: ceFAZolin 2 GM PREMIX 50 ML IV ONE (12:15)
[2017-07-26] MEDS ORDERED: SYSTSOL EACH EYE (12:20)
[2017-07-26] MEDS ORDERED: ASPI-516 CHEW (12:21)
[2017-07-26] MEDS ORDERED: MIDAZOLAM HCL 2 MG/2 ML VIAL ONE (12:39)
[2017-07-26] MEDS ORDERED: SODIUM CHLORIDE 0.9% INJ 100 ML ONE (12:40)
[2017-07-26 12:53] LABS: AUTOMATED NEUTROPHIL # 3.6 TH/MM3 (1.8-7.7); BASOPHIL % 0.5 % (0.0-2.0); EOSINOPHIL # 0.1 TH/MM3 (0-0.4); EOSINOPHIL % 0.8 % (0.0-4.0); HEMATOCRIT 35.5 % (35.0-46.0); HEMOGLOBIN 12.2 GM/DL (11.6-15.3); LYMPH % 39.2 % (9.0-44.0); LYMPHOCYTE # 2.7 TH/MM3 (1.0-4.8); MEAN CELL VOLUME 88.7 FL (80.0-100.0); MEAN CORPUSCULAR HEMOGLOBIN 30.5 PG (27.0-34.0); MEAN CORPUSCULAR HGB CONC 34.4 % (32.0-36.0); MEAN PLATELET VOLUME 8.8 FL (7.0-11.0); MONO % 6.6 % (0.0-8.0); MONOCYTE # 0.4 TH/MM3 (0-0.9); NEUT % 52.9 % (16.0-70.0); PLATELET COUNT 249 TH/MM3 (150-450); RED BLOOD COUNT 4.01 MIL/MM3 (4.00-5.30); WHITE BLOOD COUNT 6.8 TH/MM3 (4.0-11.0)
[2017-07-26 13:09] LABS: BICARBONATE 27.9 MEQ/L (21.0-32.0); CALCIUM 9.9 MG/DL (8.5-10.1); CREATININE 0.91 MG/DL (0.50-1.00)
[2017-07-26 13:11] LABS: ALBUMIN 3.9 GM/DL (3.4-5.0); DIRECT BILIRUBIN ADULT 0.1 MG/DL (0.0-0.2)
[2017-07-26 13:13] LABS: INDIRECT BILIRUBIN 0.6 MG/DL (0.0-0.8); TOTAL BILIRUBIN ADULT 0.7 MG/DL (0.2-1.0); TOTAL PROTEIN 7.5 GM/DL (6.4-8.2)
[2017-07-26] MEDS ORDERED: DO NOT ADM ANY ANTICOAGULANT DRUGS PRN (14:57)
[2017-07-26] MEDS ORDERED: Post-op Orders (for Pharmacy) XX ONE (15:00)
[2017-07-26] MEDS ORDERED: ZOLPIDEM TARTRATE 5 MG TAB PO PRN (15:00)
[2017-07-26] MEDS ORDERED: ACETAMINOPHEN/HYDROcodone 325 MG/5 MG TAB PO PRN ×2 (15:00)
[2017-07-26] MEDS ORDERED: NITROGLYCERIN 0.4 MG SL 25 TABS/BTL SL PRN (15:00)
[2017-07-26] MEDS ORDERED: diphenhydrAMINE HCL 25 MG CAP PO PRN (15:00)
[2017-07-26] MEDS ORDERED: SODIUM CHLORIDE 0.9% FLUSH 10 ML FLUSH IV FLUSH PRN (15:00)
[2017-07-26] MEDS ORDERED: MORPHINE SULFATE 2 MG/ML INJ IV PUSH PRN (15:15)
[2017-07-26] MEDS: SODIUM CHLOR 0.9% 1000 ML INJ 1,000 ML IV SCH (15:20)
[2017-07-26] MEDS ORDERED: *morphine SULFATE 4 MG/ML PERIprocedure ONLY ONE (15:23)
[2017-07-26] MEDS: ACETAMINOPHEN 1000 MG/100 ML 100 ML IV SCH ×2 (15:30→19:47)
[2017-07-26] MEDS ORDERED: ENALAPRILAT 1.25 MG/ML VIAL ONE (15:34)
[2017-07-26] MEDS ORDERED: *morphine SULFATE 8 MG/ML PERIprocedure ONLY ONE (15:44)
--- NOTE | 2017-07-26 16:03 | MP ---
cc: Ady Collazo MD DATE OF OPERATION: 07/26/2017 PREOPERATIVE DIAGNOSIS: Acute cholecystitis. POSTOPERATIVE DIAGNOSIS: Acute cholecystitis. PROCEDURE: Laparoscopic cholecystectomy. ATTENDING SURGEON: Ady Collazo MD PERSONAL CARE HOME ADMINISTRATOR: Staff. ANESTHESIA: General and regional tap block. ESTIMATED BLOOD LOSS: Less than 25 mL. COMPLICATIONS: None. FINDINGS: A chronically and acutely inflamed gallbladder with a large amount of adhesions in the right side of the abdomen from previous midline laparotomy. INDICATIONS FOR PROCEDURE: Patient is a 76-year-old female who was recently diagnosed with acute cholecystitis. The patient was treated medically due to being on anticoagulation due to some history of myocardial infarction and cardiac catheterization with stents, remote history. The patient was recommended by cardiology to hold her Plavix and was cleared for surgery. The patient was ultimately discharged home on oral antibiotics and followed up for planned laparoscopic cholecystectomy. The risks, benefits and alternatives to laparoscopic cholecystectomy for treatment of acute and chronic cholecystitis were discussed with the patient in detail prior to the procedure and she agreed to undergo the procedure. DESCRIPTION OF PROCEDURE: The patient was taken to the operating room, placed in a supine position and placed under general endotracheal anesthesia. The patient's abdomen was prepped and draped in a sterile fashion. Timeout was performed. Of note, the patient underwent a regional tap block prior to the procedure. The abdomen was entered through a Calvin-type technique. We made an approximately 2 cm horizontal skin incision as well as xiphoid, which was well above the patient's previous scar. We dissected the subcutaneous tissue with Bovie electrocautery and opened the fascia in transverse fashion at the midline as well as slightly over the right rectus muscle on an anterior rectus sheath. We then spread the posterior rectus sheath on the right and bluntly entered the abdominal cavity with S retractors. We did some finger dissection and placed a balloon trocar 10 mm port into this Calvin defect under direct visualization. We insufflated the abdomen and surveyed the abdomen with a 5 mm 30-degree camera and there is no evidence of any complication from our entry. There was noted to be a very large amount of scar tissue in the midline as well as on the right lower and somewhat in right upper quadrants. We were able to visualize the gallbladder at this time and it was stuck to the duodenum and up to the abdominal wall anteriorly. Then able to place three 5 mm ports in the right upper quadrant and 1 in the right lower quadrant and 1 in the left upper quadrant, all under direct visualization with a laparoscope, as we were able to bluntly take down adhesions to safely place these ports and better visualize our operative field. At this point in time, we could easily visualize the gallbladder and work with the camera with good visualization as well as 2 hands to perform our dissection. We used a Harmonic scalpel to dissect down the gallbladder off of the duodenum carefully as well as off the abdominal wall. We performed a dome down technique using the Harmonic scalpel taking it off of the gallbladder fossa. We identified the cystic duct and cystic artery as I enter the gallbladder. The anatomy was fairly straightforward, as the patient mostly had a chronic type disease. We placed a single clip over the cystic artery and 2 clips over the cystic duct distally and 1 clip proximally over the specimen to prevent spillage of bile. We used the Harmonic scalpel to divide the artery and the cystic duct and the gallbladder was removed with an Endo Catch bag through the subxiphoid Calvin port, which was later inspected off the bedside and found to be normal anatomy containing stones. We then did extensive dissection that was done to gain visualization to perform the surgery laparoscopically. We did feel that due to the chronic nature of the gallbladder, I felt that leaving a drain would be prudent, as the patient had a very small risk of bile leak after the procedure. I placed a 19-Occitan round Jim drain through the right upper quadrant 5 port incision. We sutured this in place with a nylon drain stitch. We then turned our attention towards closure. We removed all ports under visualization of the laparoscope and expressed pneumoperitoneum. We closed the 10 mm Calvin port with a running 0 Vicryl suture. We closed the skin with 3-0 Vicryl deep dermal sutures, followed by 4-0 Monocryl and Dermabond. The patient's drain was placed to bulb suction. The patient was discontinued from anesthesia and taken to the PACU in stable condition. The patient tolerated the procedure well, no apparent complications, all counts were correct, and I was present and scrubbed for the entire procedure. MD ABIMAEL Richmond/bryan , 03:04 PM , 04:01 PM
[2017-07-26] MEDS ORDERED: GLYCOPYRROLATE 0.2 MG/ML VIAL ONE (16:30)
[2017-07-26] MEDS ORDERED: *ONDANSETRON 4 MG VIAL PERIprocedural Use ONLY ONE (17:06)
[2017-07-26] MEDS: CARVEDILOL 6.25 MG TAB PO SCH (19:45)
[2017-07-26] MEDS: ATORVASTATIN 40 MG TAB PO SCH (19:46)
[2017-07-26] MEDS: ONDANSETRON HCL 4 MG/2 ML VIAL IV PUSH PRN (19:46)
[2017-07-26 20:00] VITALS: BP 163/74; PULSE 65; RESP 18; TEMP 95.8; O2SAT 100
[2017-07-26] MEDS ORDERED: GLYCOPYRROLATE 0.2 MG/ML VIAL IV PUSH ONE (20:00)
[2017-07-26] MEDS ORDERED: [UNRECOGNIZED DRUG - OTHER] EACH EYE SCH (21:00)
[2017-07-26] MEDS: SODIUM CHLORIDE 0.9% FLUSH 10 ML FLUSH IV FLUSH SCH (21:00)
[2017-07-26] MEDS ORDERED: ASPIRIN 81 MG CHEW TAB PO SCH (21:15)
[2017-07-27] VITALS (8 sets, daily range): BP systolic 125–208; BP diastolic 63–86; PULSE 48–85; RESP 18–22; TEMP 96–97.8; O2SAT 96–100
[2017-07-27] MEDS: SODIUM CHLOR 0.9% 1000 ML INJ 1,000 ML IV SCH ×2 (01:32→20:17)
[2017-07-27] MEDS: ACETAMINOPHEN 1000 MG/100 ML 100 ML IV SCH ×2 (04:30→08:58)
[2017-07-27] MEDS: SODIUM CHLORIDE 0.9% FLUSH 10 ML FLUSH IV FLUSH SCH ×2 (08:55→20:18)
[2017-07-27] MEDS: POTASSIUM CHLORIDE 10 MEQ CONTROLLED RELEASE TAB PO SCH (08:57)
[2017-07-27] MEDS: LISINOPRIL 20 MG TAB PO SCH (08:57)
[2017-07-27] MEDS: CARVEDILOL 6.25 MG TAB PO SCH ×2 (08:57→20:18)
[2017-07-27] MEDS: ASPIRIN 81 MG CHEW TAB PO SCH (08:57)
[2017-07-27] MEDS: ONDANSETRON HCL 4 MG/2 ML VIAL IV PUSH PRN (09:06)
--- NOTE | 2017-07-27 11:14 | EKG ---
Date Performed: 07/26/2017 Time Performed: 17:11:23 PTAGE: 76 years EKG: Sinus rhythm MINIMAL ST DEPRESSION BORDERLINE ECG Since the prior tracing, there has been no significant change PREVIOUS TRACING : 07/17/2017 10.56 DOCTOR: Candi Stokes Interpretating Date/Time 07/27/2017 11:11:17
[2017-07-27] MEDS: ENOXAPARIN SODIUM 40 MG/0.4 ML SYRINGE SQ SCH (14:00)
--- NOTE | 2017-07-27 14:46 | HHI.PR ---
Subjective Subjective Notes Nausea and emesis this AM Walked last night Objective Vitals/I&O Vital Signs Date Time Temp Pulse Resp B/P (MAP) Pulse Ox O2 Delivery O2 Flow Rate FiO2 07/27/17 12:00 97.8 61 20 125/84 (98) 98 07/26/17 17:30 Nasal Cannula 2 Cardiovascular: Regular Lungs: Clear Abdomen: Other (lap sites c/d/i; PAPA with serous fluid; abdomen mildly distended ) Extremities: No edema A/P Assessment and Plan 76 year old female POD1 lap annita -Continue routine PAPA care -Clear liquids; advance as tolerated -Continue to hold Plavix -OOB as tolerated Attending Statement The exam, history, and the medical decision-making described in the above note were completed with the assistance of the mid-level provider. I reviewed and agree with the findings presented. I attest that I had a [id number] encounter with the patient on the same day, and personally performed and documented my assessment and findings in the medical record. patient stable postop, some nausea patient back on ASA, if stable can restart Plavix on Monday will DC drain prior to DC home Cathryn Michael/First Corina BARLOW Jul 27, 2017 14:46 Ady Collazo MD Jul 28, 2017 11:01
[2017-07-27] MEDS: ATORVASTATIN 40 MG TAB PO SCH (20:18)
[2017-07-27] MEDS: ENALAPRILAT 1.25 MG/ML VIAL IV PUSH PRN (20:31)
[2017-07-28] VITALS: BP 198/82; PULSE 74; RESP 17; TEMP 97.6; O2SAT 95
[2017-07-28] MEDS: ENALAPRILAT 1.25 MG/ML VIAL IV PUSH PRN (02:55)
[2017-07-28 04:00] VITALS: BP 210/90; PULSE 66; RESP 17; TEMP 97.2; O2SAT 96
[2017-07-28] MEDS ORDERED: amLODIPine BESYLATE 5 MG TAB PO PRN (05:30)
[2017-07-28 08:00] VITALS: BP 197/93; PULSE 69; RESP 20; TEMP 98.8; O2SAT 96
[2017-07-28] MEDS: CARVEDILOL 6.25 MG TAB PO SCH (09:10)
[2017-07-28] MEDS: POTASSIUM CHLORIDE 10 MEQ CONTROLLED RELEASE TAB PO SCH (09:10)
[2017-07-28] MEDS: LISINOPRIL 20 MG TAB PO SCH (09:11)
[2017-07-28] MEDS: ASPIRIN 81 MG CHEW TAB PO SCH (09:11)
[2017-07-28] MEDS: SODIUM CHLORIDE 0.9% FLUSH 10 ML FLUSH IV FLUSH SCH (09:13)
[2017-07-28 12:00] VITALS: BP 132/81; PULSE 81; RESP 19; TEMP 97.7; O2SAT 97
--- NOTE | 2017-07-28 12:27 | HHI.PR ---
Subjective Subjective Notes feels better, tolerating PO Objective Vitals/I&O Vital Signs Date Time Temp Pulse Resp B/P (MAP) Pulse Ox O2 Delivery O2 Flow Rate FiO2 07/28/17 08:00 98.8 69 20 197/93 (127) 96 07/26/17 17:30 Nasal Cannula 2 Abdomen: Non-distended, Post-op tenderness A/P Assessment and Plan 76yo female s/p lap annita, stable. advance diet DC drain if tolerates diet and cleared by cardiology can DC home later today ok to restart plavix today Ady Collazo MD Jul 28, 2017 12:27
[2017-07-28 16:00] VITALS: BP 177/78; PULSE 69; RESP 20; TEMP 97.7; O2SAT 96
[2017-07-28] MEDS ORDERED: NORC5TAB PO (16:03)
[2017-07-28] MEDS: ENOXAPARIN SODIUM 40 MG/0.4 ML SYRINGE SQ SCH (16:05)
--- NOTE | 2017-07-28 16:28 | HHI.DS ---
Discharge Summary Admission Date Jul 26, 2017 at 14:56 Admitting Diagnosis CBC/BMP: 07/26/17 1215 07/26/17 1215 Significant Findings Laboratory Tests Test 07/26/17 12:15 Blood Urea Nitrogen 21 MG/DL (7-18) Estimat Glomerular Filtration Rate 60 ML/MIN (>89) Pt Condition on Discharge: Good Discharge Disposition: Discharge Home Discharge Instructions DIET: Follow Instructions for: As Tolerated, No Restrictions Activities you can perform: See Additionl Instruction Other Activity Instructions: Okay to shower; pat incisions dry; no bath tubes Avoid heavy pushing pulling or lifting Cathryn Michael/First Corina BARLOW Jul 28, 2017 16:28
--- NOTE | 2017-07-28 22:06 | MB ---
cc: Grisel Matos MD, [place] 0 MD DATE OF CONSULT: 07/28/2017 HISTORY OF PRESENT ILLNESS: Ms. Curtis is a very pleasant 76-year-old white female with a history of inferior wall myocardial infarction, right coronary artery stenting in 2012 and hypertension. She underwent laparoscopic cholecystectomy on 07/26 for acute cholecystitis. She has had increased blood pressure up to 210 after her surgery. Her blood pressure is now better controlled in the 130s. The patient denies any chest pain or shortness of breath, peripheral edema, PND, dizziness or palpitations. She had a PET scan in 08/2016 which showed small fixed apical defect. This was a low-risk study. PAST MEDICAL HISTORY: Positive for inferior wall myocardial infarction, right coronary artery stenting in 06/2012, preserved left ventricular systolic function, hypertension, dyslipidemia, stenting of the left anterior descending artery, history of colon cancer, hernia repair, right nephrectomy, cataract surgery. MEDICATIONS: At home include aspirin, Plavix, lisinopril, carvedilol, potassium, atorvastatin, Centrum vitamin, and nitroglycerine. ALLERGIES: NONE. SOCIAL HISTORY: The patient does not smoke. She does not drink alcohol. FAMILY HISTORY: Positive for heart disease. REVIEW OF SYSTEMS: Otherwise negative. PHYSICAL EXAMINATION: VITAL SIGNS: Blood pressure 132/81, pulse 81 and regular. HEENT: Negative. 2+ carotid upstrokes. No bruits. LUNGS: Clear. HEART: Regular with no murmur, gallop or rub. ABDOMEN: Soft, no bruits. EXTREMITIES: Without edema, 2+ distal pulses. NEUROLOGIC: Grossly nonfocal. CARDIOLOGY STUDIES: EKG was reviewed and showed normal sinus rhythm with normal axis and intervals, nonspecific ST changes. Telemetry showed sinus rhythm and occasional PVCs. LABORATORY DATA: Hemoglobin 12.2, potassium 4.4, creatinine 0.9, AST and ALT normal. DIAGNOSES: 1. Hypertension. 2. Ventricular ectopy. 3. Recent laparoscopic cholecystectomy. 4. Coronary artery disease. 5. History of myocardial infarction and coronary stenting. DISPOSITION: Ms. Mayfield blood pressure is now better controlled. I recommend to continue her antihypertensive therapy. She will be monitoring her blood pressure at home. I will see her back for followup in our office as outpatient within 2 weeks after discharge. MD CHIKIS Sorensen//jesse , 04:38 PM , 08:41 PM
== END 2017-07-28 18:27 | disposition home or self-care (01) ==
LOC: HSDC 11:18 → HSDI 14:56 → N07B 17:46
PROVIDERS: ADMIT Surgery; ATTEND Surgery
DX: K80.10 Calculus of gallbladder with chronic cholecystitis without obstruction (principal); R11.2 Nausea with vomiting, unspecified; I25.10 Atherosclerotic heart disease of native coronary artery without angina pectoris; I10 Essential (primary) hypertension; I25.2 Old myocardial infarction; I49.3 Ventricular premature depolarization; E78.5 Hyperlipidemia, unspecified; Z85.038 Personal history of other malignant neoplasm of large intestine; Z95.5 Presence of coronary angioplasty implant and graft
CPT/HCPCS: 00790; 47562; 80048; 80076; 85025; 88304; 93005; 94150; 96361; 96365; 96366; 96372; 96375; 96376; G0378; J0131; J1650; J2250; J2270; J2405; J2710; J3010; J7030; J7120; J0690

== ENCOUNTER 2018-06-02 22:34 | Observation (INO) ==
--- NOTE | 2018-06-02 23:22 | XR ---
EXAM DATE: 06/02/2018 11:17 PM EST AGE/SEX: 77 years / Female INDICATIONS: Chest pain. CLINICAL DATA: This is the patient's initial encounter. Patient reports that signs and symptoms have been present for 1 day and indicates a pain score of 1/10. MEDICAL/SURGICAL HISTORY: Carcinoma, colon. Carcinoma renal. Nephrectomy, right. Cholecystect halle. Colon resection. Coronary stents. COMPARISON: [facility], CHEST SINGLE AP, 07/17/2017. . FINDINGS: A single AP view of the chest demonstrates the lungs to be symmetrically aerated without evidence of mass, infiltrate or effusion. Mild atherosclerotic changes are present in the aorta. The cardiomedias tinal contours are unremarkable. Osseous structures are intact. There are overlying electrocardiogr am leads. CONCLUSION: No acute cardiopulmonary disease. Electronically signed by: Timo Kenney MD Board Certified Radiologist 06/02/2018 11:21 PM EST
[2018-06-02 23:28] LABS: Baso # (Auto) 0.1 th/mm3 (0.0-0.2); Baso % (Auto) 0.6 % (0.0-2.0); Eos # (Auto) 0.2 th/mm3 (0.0-0.4); Eos % (Auto) 2.1 % (0.0-4.0); Hematocrit 36.9 % (35.0-46.0); Hemoglobin 12.7 gm/dL (11.6-15.3); Lymph # (Auto) 3.7 th/mm3 (1.0-4.8); Lymph % (Auto) 38.2 % (9.0-44.0); Mean Corpuscular HGB Conc 34.5 % (32.0-36.0); Mean Corpuscular Hemoglobin 31.1 pg (27.0-34.0); Mean Corpuscular Volume 90.3 fL (80.0-100.0); Mono # (Auto) 0.6 th/mm3 (0.0-0.9); Mono % (Auto) 6.4 % (0.0-8.0); Neut # (Auto) 5.2 th/mm3 (1.8-7.7); Neut % (Auto) 52.7 % (16.0-70.0); Platelet Count 243 th/mm3 (150-450); Red Blood Count 4.09 mil/mm3 (4.00-5.30); Red Cell Distribution Width 13.2 % (11.6-17.2); White Blood Count 9.8 th/mm3 (4.0-11.0)
[2018-06-02 23:40] LABS: Albumin 4.1 g/dL (3.4-5.0); Anion Gap 5 meq/L (5-15); Aspartate Aminotransferase 26 U/L (15-37); Blood Urea Nitrogen 33 mg/dL (7-18); Calcium 9.1 mg/dL (8.5-10.1); Carbon Dioxide 24.8 meq/L (21.0-32.0); Chloride 109 meq/L (98-107); Glomerular Filtration Rate 60 mL/min (>89); Glucose,Random 101 mg/dL (74-106); Potassium 4.1 meq/L (3.5-5.1); Sodium 139 meq/L (136-145)
[2018-06-02 23:41] LABS: Alanine Aminotransferase 31 U/L (10-53)
[2018-06-02 23:44] LABS: Alkaline Phosphatase 73 U/L (45-117); Total Protein 7.8 g/dL (6.4-8.2)
--- NOTE | 2018-06-03 00:24 | CT ---
EXAM DATE: 06/03/2018 12:14 AM EST AGE/SEX: 77 years / Female INDICATIONS: Chest pain. CLINICAL DATA: This is the patient's initial encounter. Patient reports that signs and symptoms have been present for 1 day and indicates a pain score of 8/10. MEDICAL/SURGICAL HISTORY: Cardiovascular disease. Hypertension. Coronary artery stent. RADIATION DOSE: 7.96 CTDI (mGy) COMPARISON: [facility], CT THORAX W CONTRAST, 07/17/2017. [facility], CHEST 1V SINGLE AP, 06/02/2018. . TECHNIQUE: Volumetric scanning was performed using a multi-row detector CT scanner during bolus infu marisol of 75 ml Omnipaque 350 (iohexol) nonionic water-soluble contrast as a single exam dose. The terri a was post processed with a variety of visualization algorithms including full volume maximum intensi ty projection and sliding thin slab reformation. Using automated exposure control and adjustment of t he mA and/or kV according to patient size, radiation dose was kept as low as reasonably achievable to obtain optimal diagnostic quality images. DICOM format image data is available electronically for r eview and comparison. FINDINGS: Pulmonary Arteries: No filling defects are seen in the pulmonary arteries out to the subsegmental ve ssels. The left and right pulmonary arteries are normal in diameter. Lung: No infiltrates seen. Stable scarring along the right medial lung base. Effusion: None. Mediastinum: No evidence of mediastinal or hilar adenopathy. Other: A stable benign cystic structures again noted in the right lobe of the liver. CONCLUSION: 1. No evidence of pulmonary embolism. 2. Lungs are clear. 3. Stable benign cystic structure in the right lobe of the liver. 4. Stable mild scarring in the right medial lung base. Electronically signed by: Timo Kenney MD Board Certified Radiologist 06/03/2018 12:23 AM EST
--- NOTE | 2018-06-03 00:29 | ED ---
HPI General Chief Complaint: Chest Pain Stated Complaint: chest pain Time Seen by Provider: 06/02/18 22:56 Source: patient Mode of arrival: ambulatory Limitations: no limitations History of Present Illness HPI narrative: 77-year-old female came to the emergency room with history of left side did chest pain that she describes as needle pricks since 5 PM today. The pain was not radiational. No aggravating or relieving factors identified. No associated shortness of breath, syncopal episode or diaphoresis. Patient has history of coronary artery disease and when the pain continued to happen she got worried and came to the emergency room. Patient says that she took 2 Tylenols and 1 nitro prior to coming to the emergency room. Currently the pain is gone. She had 2 stents put in in 2012. 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 Vital signs revealed significant hypertension. No history of headache or blurred vision. Patient told me that she has been getting some palpitations and irregular heartbeat. She had mentioned this to Dr. Matos who did a Holter monitor on her and told her that the results were normal. Related Data Home Medications Medication Instructions Recorded Confirmed aspirin 81 mg PO DAILY 06/02/18 06/02/18 atorvastatin 40 mg PO QPM 06/02/18 06/02/18 carvedilol 6.25 mg PO BID 06/02/18 06/02/18 cyclosporine [Restasis] 1 drp OPHTHALMIC (EYE) Q12H 06/02/18 06/02/18 lisinopril 20 mg PO DAILY 06/02/18 06/02/18 pspeydqa-lxy-NR-lycopen-lutein 1 tab PO DAILY 06/02/18 06/02/18 [Centrum Silver] nitroglycerin 0.4 mg SUBLINGUAL Q5-15M PRN 06/02/18 06/02/18 potassium chloride 10 meq PO DAILY 06/02/18 06/02/18 Allergies Allergy/AdvReac Type Severity Reaction Status Date / Time NSAIDS (Non-Steroidal AdvReac Unknown Verified 07/26/17 11:52 Anti-Inflamma MDRO AdvReac Unknown Uncoded 07/25/17 13:45 Review of Systems ROS: all other systems reviewed are negative FORMERLY [facility], [facility]–1983 Medical History Medical History HTN (hypertension) (Acute) Heart attack (Acute) High cholesterol (Acute) Surgical History Surgical History H/O heart artery stent (Acute) Social History Social History Substance History: No History of Abuse Second Hand Smoke Exposure: No Smoking Status: Never smoker How Often Do You Have a Drink Containing Alcohol: Never Recent Travel in [facility] within the Last 8 Weeks: No Recent Out of Country Travel within the Last 8 Weeks: No Immunization History Tetanus Immunization: >5 Years Exam Narrative Exam Narrative: GENERAL: Awake, alert, anxious, no obvious distress SKIN: Focused skin assessment warm/dry. HEAD: Atraumatic. Normocephalic. EYES: Pupils equal and round. No scleral icterus. No injection or drainage. ENT: No nasal bleeding or discharge. Mucous membranes pink and moist. NECK: Trachea midline. No JVD. CARDIOVASCULAR: Regular rate and rhythm. No murmur appreciated. RESPIRATORY: No accessory muscle use. Clear to auscultation. Breath sounds equal bilaterally. GASTROINTESTINAL: Abdomen soft, non-tender, nondistended. Hepatic and splenic margins not palpable. MUSCULOSKELETAL: No obvious deformities. No clubbing. No cyanosis. No edema. NEUROLOGICAL: Awake and alert. No obvious cranial nerve deficits. Motor grossly within normal limits. Normal speech. PSYCHIATRIC: Appropriate mood and affect; insight and judgment normal. Course Initial Documented Vital Signs Temperature 98 F 06/02/18 22:39 Pulse Rate 84 06/02/18 22:39 Respiratory Rate 20 06/02/18 22:39 Blood Pressure 234/108 H 06/02/18 22:39 Pulse Oximetry 98 06/02/18 22:39 Last Documented Vital Signs Temperature 97.7 F 06/03/18 12:00 Pulse Rate 66 06/03/18 12:00 Respiratory Rate 16 06/03/18 12:00 Blood Pressure 151/66 H 06/03/18 12:00 Pulse Oximetry 99 06/03/18 12:00 Medical Decision Making MDM Narrative Medical decision making narrative: 12:27 AM blood test results are back and d- dimer was mildly elevated. Rest of her blood test results are within normal limit. CTA pulmonary was negative for any PE. Patient continues to remain chest pain-free. Given her risk factors of decided to admit her to the chest pain center. I gave her 1 dose of p.o. clonidine and her blood pressure has come down some compared to before. Medical Screen Exam Complete: Yes Emergency Medical Condition: Yes Lab Data Result diagrams: 06/02/18 23:12 06/02/18 23:12 Lab Results 06/02/18 06/02/18 06/02/18 Range/Units 23:12 23:12 23:12 WBC 9.8 (4.0-11.0) th/mm3 RBC 4.09 (4.00-5.30) mil/mm3 Hgb 12.7 (11.6-15.3) gm/dL Hct 36.9 (35.0-46.0) % MCV 90.3 (80.0-100.0) fL MCH 31.1 (27.0-34.0) pg MCHC 34.5 (32.0-36.0) % RDW 13.2 (11.6-17.2) % Plt Count 243 (150-450) th/mm3 MPV 9.0 (7.0-11.0) fL Neut % (Auto) 52.7 (16.0-70.0) % Lymph % (Auto) 38.2 (9.0-44.0) % Chaves % (Auto) 6.4 (0.0-8.0) % Eos % (Auto) 2.1 (0.0-4.0) % Baso % (Auto) 0.6 (0.0-2.0) % Neut # (Auto) 5.2 (1.8-7.7) th/mm3 Lymph # (Auto) 3.7 (1.0-4.8) th/mm3 Chaves # (Auto) 0.6 (0.0-0.9) th/mm3 Eos # (Auto) 0.2 (0.0-0.4) th/mm3 Baso # (Auto) 0.1 (0.0-0.2) th/mm3 WBC Differential . Differential Comment Auto diff final D-Dimer Quant (PE/DVT) 0.88 H (0.00-0.50) mg/L FEU Sodium 139 (136-145) meq/L Potassium 4.1 (3.5-5.1) meq/L Chloride 109 H (98-107) meq/L Carbon Dioxide 24.8 (21.0-32.0) meq/L Anion Gap 5 (5-15) meq/L BUN 33 H (7-18) mg/dL Creatinine 0.92 (0.50-1.00) mg/dL Estimated GFR 60 L (>89) mL/min Random Glucose 101 (74-106) mg/dL Calcium 9.1 (8.5-10.1) mg/dL Total Bilirubin 0.4 (0.2-1.0) mg/dL AST 26 (15-37) U/L ALT 31 (10-53) U/L Alkaline Phosphatase 73 (45-117) U/L Total Creatine Kinase (26-192) U/L Troponin I Less than 0.02 L (0.02-0.05) ng/mL Total Protein 7.8 (6.4-8.2) g/dL Albumin 4.1 (3.4-5.0) g/dL 06/03/18 06/03/18 Range/Units 02:11 05:40 WBC (4.0-11.0) th/mm3 RBC (4.00-5.30) mil/mm3 Hgb (11.6-15.3) gm/dL Hct (35.0-46.0) % MCV (80.0-100.0) fL MCH (27.0-34.0) pg MCHC (32.0-36.0) % RDW (11.6-17.2) % Plt Count (150-450) th/mm3 MPV (7.0-11.0) fL Neut % (Auto) (16.0-70.0) % Lymph % (Auto) (9.0-44.0) % Chaves % (Auto) (0.0-8.0) % Eos % (Auto) (0.0-4.0) % Baso % (Auto) (0.0-2.0) % Neut # (Auto) (1.8-7.7) th/mm3 Lymph # (Auto) (1.0-4.8) th/mm3 Chaves # (Auto) (0.0-0.9) th/mm3 Eos # (Auto) (0.0-0.4) th/mm3 Baso # (Auto) (0.0-0.2) th/mm3 WBC Differential Differential Comment D-Dimer Quant (PE/DVT) (0.00-0.50) mg/L FEU Sodium (136-145) meq/L Potassium (3.5-5.1) meq/L Chloride (98-107) meq/L Carbon Dioxide (21.0-32.0) meq/L Anion Gap (5-15) meq/L BUN (7-18) mg/dL Creatinine (0.50-1.00) mg/dL Estimated GFR (>89) mL/min Random Glucose (74-106) mg/dL Calcium (8.5-10.1) mg/dL Total Bilirubin (0.2-1.0) mg/dL AST (15-37) U/L ALT (10-53) U/L Alkaline Phosphatase (45-117) U/L Total Creatine Kinase 91 107 (26-192) U/L Troponin I Less than 0.02 L Less than 0.02 L (0.02-0.05) ng/mL Total Protein (6.4-8.2) g/dL Albumin (3.4-5.0) g/dL Imaging Data Radiologist's impression: Chest X-Ray 06/02/18 23:04 CONCLUSION: No acute cardiopulmonary disease. Chest CTA 06/03/18 00:00 CONCLUSION: 1. No evidence of pulmonary embolism. 2. Lungs are clear. 3. Stable benign cystic structure in the right lobe of the liver. 4. Stable mild scarring in the right medial lung base. Myocardial Perfusion Scan Nuc Med 06/03/18 09:01 CONCLUSION: 1. Negative examination. ECG Data Attestation: I personally reviewed and interpreted this ECG as follows: Interpretation: Twelve-lead EKG was reviewed by me. Normal sinus rhythm, normal axis, nonsustained bigeminy. Heart rate of 73 bpm. Discharge Plan Discharge Disposition Patient Disposition: ED Admit(ED Internal Use Only) Discharge Condition Condition: Stable Discharge Order Discharge Orders: Discharge Order (Routine); Ordered 06/03/18 Ordered By: Nir Ramirez ED Use Only Admit Order (Routine); Ordered 06/03/18 Ordered By: Lili Choudhury Physicians Team ED Provider: Lili Choudhury Primary Care Provider: Grisel Matos Attending Provider: Jeremiah Arguelles ED Status: Left Department Discharge Information Discharge Date/Time: 06/03/18 03:39
[2018-06-03 02:49] LABS: Creatine Kinase 91 U/L (26-192)
[2018-06-03 06:28] LABS: Creatine Kinase 107 U/L (26-192)
[2018-06-03 07:31] VITALS: RESP 16
[2018-06-03] MEDS ORDERED: Regadenoson Inj 0.4 MG/5 ML Syringe IV.PUSH ONE ×2 (09:01→10:59)
[2018-06-03] MEDS ORDERED: Potassium Chloride 10 MEQ ER Capsule PO SCH (09:15)
[2018-06-03] MEDS ORDERED: Lisinopril 20 MG Tablet PO SCH (09:15)
[2018-06-03] MEDS ORDERED: Carvedilol 6.25 MG Tablet PO SCH (09:15)
--- NOTE | 2018-06-03 09:26 | P.HPCA ---
History of Present Illness Primary Care Physician: Grisel White MD Chief Complaint: Chest pain History of Present Illness: This is a 77-year-old female history of CAD with stents about 6 years ago, hypertension, and hyperlipidemia that presents to ED to be evaluated for chest discomfort. Patient states that yesterday around 3:00 she started having sharp left-sided chest pain while doing some housecleaning. It lasted about 30 minutes. No associated symptoms of shortness of breath, nausea, or diaphoresis. Then it reoccurred later in the day a few more times. Is not brought on by anything strenuous. She states that she does exercise daily. She walks an average 3-4 miles a day and has been okay with that. She states the symptoms are not similar to the symptoms that led to her stenting about 6 years ago. She states that time she was having a burning sensation in her chest with shortness of breath, nausea, diaphoresis. It was at rest and with activity. She found at that time she was having decreased exercise tolerance and her symptoms will be brought on with her activities. This is not the case with her symptoms that brought her to the hospital yesterday. She follows Dr. white of cardiology and last saw him 3 weeks ago. States she had a Holter monitor which she wore for a week and states that everything looked okay. She also had carotid ultrasound recently and states that looked good too. She believes her last stress test was a couple years ago. She states she has not needed a cardiac catheterization since stenting about 6 years ago. Voices compliance with all of her medications. She states her blood pressure was high and she arrived in the ED and has remained somewhat high and that is very unusual. She is checks her blood pressure daily and states her blood pressures are always normal. But she also states that she has had a diet that has been much higher in sodium content over the last week. Past medical history: History of CAD with stent about 6 years ago, hypertension , and hyperlipidemia. Denies diabetes. Family history positive for CAD. Social history: Non-smoker. Denies alcohol or illicit drugs. She is 54 years. 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 She arrived in this area March 26. - Diagnosis (1) Chest pain (2) CAD (coronary artery disease) (3) History of heart artery stent (4) Hypertension (5) Hyperlipidemia Review of Systems General: Patient denies fevers, chills, and recent travel. HEENT: Patient denies headache, sore throat, difficulty swallowing. Cardiovascular: Has the chest discomfort as mentioned above. Denies sensation of heart beating rapidly or irregularly. No syncope. Respiratory: Denies shortness of breath or inspirational chest discomfort. Denies coughing wheezing or hemoptysis. GI: Patient denies nausea, vomiting, diarrhea, abdominal pain, bloody stools. Musculoskeletal: Patient denies joint pain or edema. Denies calf pain or edema. Neurovascular: Patient denies numbness, tingling, weakness in extremities. Denies headache. Endocrine: Denies polyuria and polydipsia. Hematologic: Denies easy bruising. Skin: Denies rash or itching. PMFSH - History History Provided By: Patient - Medical History Medical History: Medical History (Last Reviewed 06/03/18 @ 00:27 by Lili Choudhury MD) HTN (hypertension) Heart attack High cholesterol - Surgical History Surgical History: Surgical History (Last Reviewed 06/03/18 @ 00:27 by Lili Choudhury MD) H/O heart artery stent - Tobacco History Second Hand Smoke Exposure: No Tobacco Use In Past 30 Days: No Smoking Status: Never smoker - Alcohol History How Often Do You Have a Drink Containing Alcohol: Never - Substance Use History Substance History: No History of Abuse - Travel History Recent Travel in the [place] Within the Last 8 Weeks: No Recent Travel Out of the Country Within the Last 8 Weeks: No - Immunization History Tetanus Immunization: >5 Years Medications and Allergies Active Medications: Active Medications Aspirin (Aspirin Chew) 162 mg PO DAILY [facility] Last Admin: 06/03/18 09:15 Dose: 162 mg Atorvastatin Calcium (Lipitor) 40 mg PO QPM [facility] Carvedilol (Coreg) 6.25 mg PO BID [facility] Last Admin: 06/03/18 09:15 Dose: 6.25 mg Clonidine HCl (Catapres) 0.1 mg PO Q6H PRN PRN Reason: SBP>170 OR DBP>100 Last Admin: 06/03/18 06:17 Dose: 0.1 mg Lisinopril (Prinivil) 20 mg PO DAILY [facility] Last Admin: 06/03/18 09:15 Dose: 20 mg Potassium Chloride (Kcl) 10 meq PO DAILY [facility] Last Admin: 06/03/18 09:16 Dose: 10 meq Sodium Chloride (Ns Flush) 2 ml IV.FLUSH BID [facility] Last Admin: 06/03/18 09:15 Dose: 2 ml Sodium Chloride (Ns Flush) 2 ml IV.FLUSH PRN PRN PRN Reason: FLUSH AFTER USING IV ACCESS Allergies Allergy/AdvReac Type Severity Reaction Status Date / Time NSAIDS (Non-Steroidal AdvReac Unknown Verified 07/26/17 11:52 Anti-Inflamma MDRO AdvReac Unknown Uncoded 07/25/17 13:45 Home Medications Medication Instructions Recorded Confirmed Type aspirin 81 mg PO DAILY 06/02/18 06/02/18 History atorvastatin 40 mg PO QPM 06/02/18 06/02/18 History carvedilol 6.25 mg PO BID 06/02/18 06/02/18 History cyclosporine [Restasis] 1 drp OPHTHALMIC (EYE) Q12H 06/02/18 06/02/18 History lisinopril 20 mg PO DAILY 06/02/18 06/02/18 History [id number]-gwj-ZO-lycopen-lutein 1 tab PO DAILY 06/02/18 06/02/18 History [Centrum Silver] nitroglycerin 0.4 mg SUBLINGUAL Q5-15M PRN 06/02/18 06/02/18 History potassium chloride 10 meq PO DAILY 06/02/18 06/02/18 History Exam Vital signs: Vital Signs 06/02/18 22:39 06/02/18 22:56 06/02/18 23:10 Temperature 98 F Pulse Rate 84 75 Respiratory Rate 20 16 Blood Pressure 234/108 H 232/106 H Pulse Oximetry 98 100 99 06/02/18 23:36 06/02/18 23:37 06/03/18 01:23 Temperature Pulse Rate 71 70 59 L Respiratory Rate 16 20 Blood Pressure 204/88 H 161/70 H Pulse Oximetry 99 98 06/03/18 02:07 06/03/18 04:00 06/03/18 07:31 Temperature 97.5 F L 97.9 F Pulse Rate 57 L 73 76 Respiratory Rate 14 20 16 Blood Pressure 124/61 198/96 H 179/81 H Pulse Oximetry 98 98 98 Intake & Output 06/02/18 06/03/18 06/03/18 18:59 06:59 18:59 Weight 65.771 kg Other: # Voids 1 Weight On Admission 65.771 kg Narrative: GENERAL: This is a well-nourished, well-developed patient, in no apparent distress. Patient speaks in clear complete sentences. Patient is pleasant. HEENT: Head is atraumatic and normocephalic. Neck is supple without lymphadenopathy and trachea is midline. No JVD or carotid bruits. CARDIOVASCULAR: Regular rate and rhythm without murmurs, gallops, or rubs. RESPIRATORY: Clear to auscultation. Breath sounds equal bilaterally. No wheezes , rales, or rhonchi. Chest wall is nontender. No use of accessory muscles. GASTROINTESTINAL: Abdomen is nontender, nondistended. Abdomen soft. No obvious pulsatile mass or bruit. No CVA tenderness. Strong femoral pulses bilaterally. Normal bowel sounds in all quadrants. MUSCULOSKELETAL: Patient is moving upper and lower extremities freely. No calf tenderness or edema, no Homans sign. Strong pulses in upper and lower extremities. NEUROLOGICAL: Patient is alert and oriented. Cranial nerves 2-12 are grossly intact. No focal deficits and speech is clear. SKIN: No rash and turgor is normal. Results 06/02/18 23:12 06/02/18 23:12 Cardiac Enzymes 06/02/18 06/03/18 06/03/18 Range/Units 23:12 02:11 05:40 AST 26 (15-37) U/L Troponin I Less than 0.02 L Less than 0.02 L Less than 0.02 L (0.02-0.05) ng/mL CBC 06/02/18 Range/Units 23:12 WBC 9.8 (4.0-11.0) th/mm3 RBC 4.09 (4.00-5.30) mil/mm3 Hgb 12.7 (11.6-15.3) gm/dL Hct 36.9 (35.0-46.0) % Plt Count 243 (150-450) th/mm3 Neut # (Auto) 5.2 (1.8-7.7) th/mm3 Lymph # (Auto) 3.7 (1.0-4.8) th/mm3 [place] # (Auto) 0.6 (0.0-0.9) th/mm3 Eos # (Auto) 0.2 (0.0-0.4) th/mm3 Baso # (Auto) 0.1 (0.0-0.2) th/mm3 Comprehensive Metabolic Panel 06/02/18 Range/Units 23:12 Sodium 139 (136-145) meq/L Potassium 4.1 (3.5-5.1) meq/L Chloride 109 H (98-107) meq/L Carbon Dioxide 24.8 (21.0-32.0) meq/L BUN 33 H (7-18) mg/dL Creatinine 0.92 (0.50-1.00) mg/dL Calcium 9.1 (8.5-10.1) mg/dL AST 26 (15-37) U/L ALT 31 (10-53) U/L Alkaline Phosphatase 73 (45-117) U/L Total Protein 7.8 (6.4-8.2) g/dL Albumin 4.1 (3.4-5.0) g/dL Intake and Output 06/02/18 06/03/18 06/03/18 22:59 06:59 14:59 Other: # Voids 1 Weight 65.771 kg 65.771 kg Weight On Admission 65.771 kg - Imaging and Cardiology Imaging: Impressions Chest X-Ray 06/02/18 23:04 CONCLUSION: No acute cardiopulmonary disease. Chest CTA 06/03/18 00:00 CONCLUSION: 1. No evidence of pulmonary embolism. 2. Lungs are clear. 3. Stable benign cystic structure in the right lobe of the liver. 4. Stable mild scarring in the right medial lung base. EKG interpretations - EKG EKG shows: sinus rhythm (EKGs are sinus rhythm without significant ST segment depressions or elevations. There are PVCs noted.) Caprini VTE Risk Assessment Caprini VTE Risk Assessment: Moderate/High Risk (score >= 2) Caprini Risk Assessment Model: Point Value = 1 Point Value = 2 Point Value = 3 Point Value = 5 Age 41-60 Minor surgery BMI > 25 kg/m2 Swollen legs Varicose veins or History of unexplained or recurrent spontaneous Oral contraceptives or hormone replacement Sepsis (< 1 month) Serious lung disease, including pneumonia (< 1 month) Abnormal pulmonary function Acute myocardial infarction Congestive heart failure (< 1 month) History of inflammatory bowel disease Medical patient at bed rest Age 61-74 Arthroscopic surgery Major open surgery (> 45 min) Laparoscopic surgery (> 45 min) Malignancy Confined to bed (> 72 hours) Immobilizing plaster cast Central venous access Age >= 75 History of VTE Family history of VTE Factor V Leiden Prothrombin [id number] Lupus anticoagulant Anticardiolipin antibodies Elevated serum homocysteine Heparin-induced thrombocytopenia Other congenital or acquired thrombophilia Stroke (< 1 month) Elective arthroplasty Hip, pelvis, or leg fracture Acute spinal cord injury (< 1 month) Prophylaxis Regimen: Total Risk Factor Score Risk Level Prophylaxis Regimen 0-1 Low Early ambulation 2 Moderate Order ONE of the following: *Sequential Compression Device (SCD) *Heparin 5000 units SQ BID 3-4 Higher Order ONE of the following medications: *Heparin 5000 units SQ TID *Enoxaparin/Lovenox 40 mg SQ daily (WT < 150 kg, CrCl > 30 mL/min) *Enoxaparin/Lovenox 30 mg SQ daily (WT < 150 kg, CrCl > 10-29 mL/min) *Enoxaparin/Lovenox 30 mg SQ BID (WT < 150 kg, CrCl > 30 mL/min) AND/OR *Sequential Compression Device (SCD) 5 or more Highest Order ONE of the following medications: *Heparin 5000 units SQ TID (Preferred with Epidurals) *Enoxaparin/Lovenox 40 mg SQ daily (WT < 150 kg, CrCl > 30 mL/min) *Enoxaparin/Lovenox 30 mg SQ daily (WT < 150 kg, CrCl > 10-29 mL/min) *Enoxaparin/Lovenox 30 mg SQ BID (WT < 150 kg, CrCl > 30 mL/min) AND *Sequential Compression Device (SCD) Assessment and Plan - Assessment (1) Chest pain Code(s): R07.9 - Chest pain, unspecified Status: Acute (2) CAD (coronary artery disease) Code(s): I25.10 - Atherosclerotic heart disease of solomon coronary artery without angina pectoris Status: Acute (3) History of heart artery stent Code(s): Z95.5 - Presence of coronary angioplasty implant and graft Status: Acute (4) Hypertension Code(s): I10 - Essential (primary) hypertension Status: Acute (5) Hyperlipidemia Code(s): E78.5 - Hyperlipidemia, unspecified Status: Acute - Plan * Chest pain: Patient has had serial cardiac enzymes and EKGs for ruling out purposes. She will be seen by Dr. Arguelles of cardiology and the chest pain center. I attempted to speak with her commercial decorator, I spoke with the service and they stated that he is out of town. Patient will have a Lexiscan and likely to be discharged home if nonischemic with instructions to follow-up with her commercial decorator and PCP. Return to ED for interval issues. * History of CAD: Patient has history of CAD and had stent placed about 6 years ago. Continue medication and follow-up with her commercial decorator. Awaiting Lexiscan. * Hypertension: Continue her medication. She states that her blood pressure usually controls her hypertension. Admits to having increased sodium content. She has been counseled on importance of monitoring her sodium intake and to follow-up with her PCP or commercial decorator for further management of her hypertension. We will continue to monitor and have as needed orders and adjust as needed. * Hyperlipidemia: Continue medication. Patient is stable at this time. She is agreeable to this plan. H&P: Quality - VTE Deep Vein Thrombosis/Pulmonary Embolism Present on Admission: No
--- NOTE | 2018-06-03 10:58 | ECG ---
Date Performed: 06/02/2018 Time Performed: 22:55:39 PTAGE: 77 years EKG: Sinus rhythm WITH FREQUENT VENTRICULAR PREMATURE COMPLEXES MODERATE ST DEPRESSION ABNORMAL ECG PREVIOUS TRACING : 07/26/2017 17.11 Compared to previous tracing , PVCs are new. DOCTOR: Jeremiah Arguelles Interpretating Date/Time 06/03/2018 10:57:53
--- NOTE | 2018-06-03 10:58 | ECG ---
Date Performed: 06/03/2018 Time Performed: 02:18:33 PTAGE: 77 years EKG: SINUS BRADYCARDIA BORDERLINE ECG PREVIOUS TRACING : 06/02/2018 22.55 Compared to previous tracing, PVCs no longer present. DOCTOR: Jeremiah Arguelles Interpretating Date/Time 06/03/2018 10:57:03
--- NOTE | 2018-06-03 11:03 | ECG ---
Date Performed: 06/03/2018 Time Performed: 05:28:04 PTAGE: 77 years EKG: Sinus rhythm WITH FREQUENT VENTRICULAR PREMATURE COMPLEXES ABNORMAL RHYTHM ECG INTERPRETATION BASED ON A DEFAULT AGE OF 40 YEARS Compared to PREVIOUS TRACING , PVCs are new. DOCTOR: Jeremiah Arguelles Interpretating Date/Time 06/03/2018 11:01:10
[2018-06-03 12:00] VITALS: BP 151/66; PULSE 66; TEMP 97.7; O2SAT 99
--- NOTE | 2018-06-03 12:34 | NM ---
EXAM DATE: 06/03/2018 12:26 PM EST AGE/SEX: 77 years / Female INDICATIONS:Angina. Coronary artery disease Left sided chest pain. CLINICAL DATA: This is the patient's initial encounter. Patient reports that signs and symptoms have been present for 1 day and indicates a pain score of 2/10. MEDICAL/SURGICAL HISTORY: Hypertension. Myocardial infarction. Coronary artery stent. COMPARISON: No prior exams available for comparison. DOSE: 8.1 mCi Tc 99m Myoview at rest 25.9 mCi [id number] at stress 0.4 mg Lexiscan STRESS SYMPTOMS: None. EJECTION FRACTION: >70 % TECHNIQUE: The patient underwent pharmacologic stress with infusion of prescribed dose. Continuous ECG tracing was monitored during stress. Gated SPECT imaging was performed after stress and conventi onal SPECT imaging was performed at rest. The examination was performed on a SPECT/CT scanner, both attenuation and non-corrected datasets were reviewed. FINDINGS: Distribution: The maximum perfused segment at stress is in the anterolateral wall. Perfusion Study: The pattern of perfusion at stress is within normal limits. Gated Study: There are intact wall motion and wall thickening without hypokinetic or dyskinetic segm ents. The ejection fraction is calculated at >70%. RISK CATEGORY: Low (<1% Annual Mortality Rate) CONCLUSION: 1. Negative examination. Electronically signed by: Rigoberto Angela MD Board Certified Radiologist 06/03/2018 12:33 PM EST
--- NOTE | 2018-06-04 16:03 | TR ---
Date Performed: 06/03/2018 Time Performed: 11:16:06 DOCTOR: Farhad Jennings DRUG LIST: CLINICAL HISTORY: REASON FOR TEST: REASON FOR ENDING: OBSERVATION: CONCLUSION: COMMENTS: Lexiscan stress test was performed under standard four minute protocol. Radionuclide was injected one minute prior to ending the test. ST depression was noted in the lateral leads likely secondary to LVH. Nuclear imaging and interpretation are pending.
== END 2018-06-03 13:20 | disposition home or self-care (01) ==
LOC: NEPE 22:34 → NEDA 22:34 → NEPGCP 06-03 03:33
DX: I49.9 Cardiac arrhythmia, unspecified; E78.5 Hyperlipidemia, unspecified; I10 Essential (primary) hypertension; Z95.5 Presence of coronary angioplasty implant and graft; R07.89 Other chest pain; I25.10 Atherosclerotic heart disease of native coronary artery without angina pectoris; Z79.82 Long term (current) use of aspirin; Z82.49 Family history of ischemic heart disease and other diseases of the circulatory system; I25.2 Old myocardial infarction; E78.00 Pure hypercholesterolemia, unspecified
CPT/HCPCS: 71010; 71045; 71275; 78452; 80053; 82550; 84484; 85025; 85379; 93005; 93017; 99285; A9502; G0378; J2785; Q9967; Q9969